=== PATIENT | female | born 1965 | race Caucasian/White ===

== ENCOUNTER 2019-09-25 18:05 | Emergency (ER) | payer BC, SELFPAY ==
--- NOTE | ~2019-09-25 | XR_ITS ---
EXAMINATION: XR lumbar spine 2-3V EXAM DATE: 09/25/2019 19:07 INDICATION: No known recent injury provided at this time. Pain of the mid to low back. TECHNIQUE: Lumber spine frontal, lateral, lateral L5-S1 projections for interpretation. There is no prior study for comparison. FINDINGS: There are no acute fractures identified. The vertebral bodies are aligned in the AP dimens ion. Vertebral body and disc heights are well-maintained. Minimal disc disease at L4-5 and L5-S1 and L1-2. Minimal facet arthropathy. No spondylolysis. Sacrum, sacroiliac joints, sacral arcuate lines ar e intact. Paraspinal soft tissue is unremarkable. IMPRESSION: Minimal lumbar spondylosis. No acute findings. Reviewed, dictated and finalized at location A.
--- NOTE | ~2019-09-25 | XR_ITS ---
EXAMINATION: XR thoracic spine 3V EXAM DATE: 09/25/2019 19:07 INDICATION: Mid to low back pain. No known recent injury provided at this time. TECHNIQUE: Frontal and lateral projections of the thoracic spine as well as lateral swimmers projecti on of the upper thoracic spine for interpretation. Comparison is made to prior examination from 2011. FINDINGS: There is minimal mid and lower thoracic disc disease. The vertebral bodies are aligned i n the AP dimension. Vertebral body and disc heights are well-maintained. There are no bony erosions i dentified. Paraspinal soft tissue is unremarkable. IMPRESSION: Minimal thoracic spondylosis. Reviewed, dictated and finalized at location A.
[2019-09-25 18:10] VITALS: BP 145/77; PULSE 76; RESP 14; TEMP 36.6; O2SAT 96
--- NOTE | 2019-09-25 18:14 | ED.BACK ---
HPI - Back Pain/Injury General Chief Complaint: Back Pain/Injury Stated Complaint: shoulder pain, back pain, hand/arm numbness Time Seen by Provider: 09/25/19 18:20 Source: patient Mode of arrival: ambulatory Limitations: no limitations History of Present Illness HPI Narrative: 53-year-old woman comes in today complaining of midline, mid back pain that started a few days ago. Patient states she has had no falls or injuries. She has a history of low back pain which is chronic in nature. 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 The pain is dissimilar and in a different location from past kidney infections and low back pain. She states she also has left shoulder pain it is worse with lifting it and she also has intermittent numbness of her whole left hand. She denies any symptoms in her legs, urinary symptoms, abdominal pain, fever, and weakness. She denies trauma. MD elicited complaint: back pain Pertinent past history: prior back pain and other ( UTIs) Onset (ago): week(s) (2) Timing: constant Severity: moderate Similar Symptoms Previously: Yes ( but not at this particular spot.) Quality: sharp Location: thoracic spine Exacerbating factors: movement and lifting Relieving factors: none Context: while lifting and bending Associated symptoms: numbness and arthralgias Treatments prior to arrival: acetaminophen Related Data Home Medications Medication Instructions Recorded Confirmed albuterol sulfate [ProAir 2 inh INHALATION PRN PRN 09/25/19 09/25/19 RespiClick] escitalopram oxalate 20 mg PO DAILY 09/25/19 09/25/19 montelukast 10 mg PO DAILY 09/25/19 09/25/19 Allergies Allergy/AdvReac Type Severity Reaction Status Date / Time Penicillins Allergy Unknown UNKNOWN Verified 03/03/18 11:19 BUT PT STATES VERY SERIOUS REACTION Review of Systems Constitutional: Constitutional: Denies chills, Denies fever(s) and Denies weakness Eyes: Eyes: Denies change in vision and Denies photophobia ENT: Denies dysphagia, Denies nasal congestion and Denies sore throat Cardiovascular: Cardiovascular: Denies chest pain and Denies radiating jaw, neck or arm pain Respiratory: Respiratory: Denies cough, Denies dyspnea and Denies wheezing Gastrointestinal: Gastrointestinal: Denies abdominal pain, Denies nausea and Denies vomiting Genitourinary: Genitourinary: Denies hematuria, Denies nocturia and Denies dysuria Musculoskeletal: Musculoskeletal: Reports as per HPI, Reports back pain and Reports arthralgias Integumentary/Breasts: Skin/Breast: Denies pruritus, Denies erythema and Denies rash Neurologic: Reports as per HPI, Denies vertigo, Denies dizziness, Denies syncope, Denies focal weakness and Reports numbness ( Left hand) Psychiatric: Psychiatric: Denies anxiety and Denies depression Hematologic/Lymphatic: Hematologic/Lymphatic: Denies easy bleeding and Denies easy bruising Allergic/Immunologic: Allergic/Immunologic: Denies lip swelling and Denies wheezing PMFSH Past Medical History Medical History Chronic back pain COPD (chronic obstructive pulmonary disease) GERD (gastroesophageal reflux disease) Surgical History Surgical History H/O: hysterectomy Hx of tonsillectomy Social History Social History Smoking status: Current every day smoker Alcohol intake: former Substance use: never Living arrangements: with family Exam Const: General: alert Nutritional Appearance: obese Orientation/consciousness: patient oriented x3 Other: [id number]-[id number]-[id number] acute distress. Eyes: Conjunctivae: conjunctivae normal Pupils: Equal, round and reactive pupils present EOM: EOMs intact bilaterally Resp: Effort & Inspection: normal respiratory effort and not labored Ausculta
[2019-09-25] MEDS: KETOROLAC (*BKC) 60 MG/2 ML VIAL IM (18:38)
[2019-09-25 18:48] LABS: Add Urine Microscopic? YES; Appearance Urine Clear (Clear); Bilirubin Urine Negative (Negative); Blood Urine Negative (Negative); Color Urine Yellow (Yellow); Glucose Urine UA Negative (Negative); Ketones Urine Negative (Negative); Leukocyte Esterase Ur Trace (Negative); Nitrate Urine Negative (Negative); Protein Urine Negative (Negative); Specific Grav Ur <= 1.005 (1.010-1.020); Urobilinogen Urine 0.2 mg/dL (0.2-1.0); pH Urine 5.5 (5.0-8.0)
[2019-09-25 18:52] LABS: Bacteria Urine 2+ /hpf; RBC Urine 0-2 /hpf (0-2); Squamous Epithelial Cell Urine Few /hpf (Few)
[2019-09-25 19:35] VITALS: RESP 15; O2SAT 97
== END 2019-09-25 19:39 | disposition home or self-care (01) ==
PROVIDERS: Emergency Provider Emergency Medicine; PCP Internal Medicine
DX: S29.012A Strain of muscle and tendon of back wall of thorax, initial encounter (principal); S46.912A Strain of unspecified muscle, fascia and tendon at shoulder and upper arm level, left arm, initial encounter; R20.0 Anesthesia of skin; N39.0 Urinary tract infection, site not specified
CPT/HCPCS: 72072; 72100; 81001; 96372; 99283; 99284; A9270; J1885

== ENCOUNTER 2019-10-09 14:49 | Outpatient (CLI) | payer BC, SELFPAY ==
--- NOTE | ~2019-10-09 | XR_ITS ---
XR shoulder LT min 2V 10/09/2019 15:13 Indication: Left shoulder pain Procedure: 4 views left shoulder Comparison: No prior studies for comparison. Findings: No acute fracture or traumatic malalignment. No focal soft tissue abnormality. Visualized l raj parenchyma is normal. Impression: 1: No significant bone or joint abnormality. Reviewed, dictated and finalized at location A. Impression: 1: No significant bone or joint abnormality.
--- NOTE | ~2019-10-09 | XR_ITS ---
EXAMINATION: XR_CERV2-3V_CR EXAM DATE: 10/09/2019 15:12 INDICATION: Left shoulder pain, lifting injury on 09/20, limited range of motion. TECHNIQUE: Cervical spine frontal, lateral, lateral swimmers, and open-mouth odontoid projections. There is no prior study for comparison. FINDINGS: There is no evidence of acute cervical fracture. The odontoid process is intact. Pre-dens space is normal. Prevertebral soft tissue is normal. There are no soft tissue abnormalities identi fied. Mild to moderate disc disease at C4-5 and C6-7. There is mild cervical facet and uncovertebral joint arthropathy. Vertebral body and disc heights are well-maintained. IMPRESSION: 1. Mild to moderate cervical spondylosis. 2. No acute findings. Reviewed, dictated and finalized at location A.
== END 2019-10-09 14:50 | disposition home or self-care (01) ==
LOC: CHSIMG 14:51
PROVIDERS: PCP Internal Medicine; Visit Provider Internal Medicine
DX: M25.512 Pain in left shoulder (principal)
CPT/HCPCS: 72040; 73030

== ENCOUNTER 2019-10-23 14:57 | Outpatient (RCR) | payer BC, SELFPAY ==
--- NOTE | 2019-10-30 21:49 | PTOPEVAL ---
Thank you for referring Monalisa Walter to [facility]. Please review, sign, date and return this plan of care MARINA. I agree with and certify that the following plan of care is medically necessary. Referring Physician Date Admitting Provider: Attending Provider: Fco Smith MD Referring Provider: *PT Outpatient Evaluation Start: 10/23/19 15:12 Freq: Status: Active Protocol: Document 10/23/19 15:10 [facility] (Rec: 10/23/19 15:30 [facility] [id number]) Therapy Assessment Status Assessment Status Assessment Status Evaluation Outpatient Past Medical History Respiratory History Hx Chronic Obstructive Pulmonary Disease Yes (COPD) Gastrointestinal History Hx Gastroesophageal Reflux Disease Yes Musculoskeletal History Hx Back Pain Yes Hx Orthopedic Surgery Yes: L ARM HEENT History Hx Tonsillectomy Yes Reproductive History Hx Hysterectomy Yes Hx Tubal Ligation Yes Evaluation Information Problem Diagnosis L shoulder pain, low back pain Onset 09/25/19 Additional Evaluation Detail oswestry = 48% quick dash = 84% Subjective Information patient reports she injured Query Text:As Reported By Patient/ the L shoulder and low back. Family she reports she was at work at [employer]. 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 she reports she felt a sharp pain in the back and shoulder/arm numbness . she reports she reported the pain the next day. she reports she has most of her pain with standing. she reports the pain is higher up in the spine near the neck. she reports she has numbness and tingling in the L arm. Prior Level of Function Comments Additional Prior Level of Function patient reports she prior to Comments injury at work, she has had no issues with the L shoulder/UE or back/neck. she reports she is off work currently. she reports to return to work she has to lift 50lbs. she reports she has numbness/swelling in the entire L hand. she report
--- NOTE | 2019-11-07 14:27 | PCPTNOTE ---
11/07/2019- pt cancelled todays appointment, stating she was not feeling well today. -.
--- NOTE | 2019-12-25 16:19 | PCPTNOTE ---
12/25/19 - patient has not been to therapy in several months. as of this date, patient will be DC'd from skilled PT services, and all progress towards goals will be taken from patients most recent evaluation/note. NISREEN
== END 2019-11-13 09:36 | disposition home or self-care (01) ==
LOC: CHSPT 14:57
PROVIDERS: PCP Internal Medicine; Visit Provider Internal Medicine
DX: M25.512 Pain in left shoulder (principal); M54.5 Low back pain
CPT/HCPCS: 97014; 97035; 97110; 97161; 97542; G0283

== ENCOUNTER 2019-11-28 13:38 | Outpatient (CLI) | payer OTHER, BC, SELFPAY ==
--- NOTE | ~2019-11-28 | MR_ITS ---
EXAMINATION: MR shoulder LT wo con DATE: 11/28/2019 14:42 INDICATION: Injury of left shoulder and upper arm. TECHNIQUE: Magnetic resonance imaging (MRI) of the left shoulder was performed without intravenous co ntrast. Sequences included axial PD-weighted FS FSE, coronal oblique PD-weighted FS FSE and T2-weight ed FS FSE, and sagittal oblique T2-weighted FS FSE and T1-weighted FSE. COMPARISON: Left shoulder radiographs 10/09/2019 FINDINGS: Coracoacromial arch: The acromion undersurface is curved in morphology (type II). The acromioclavicular joint is normal. T here is mild subacromial/subdeltoid bursitis. Rotator cuff: There is mild supraspinatus and infraspinatus tendinopathy. No tear. Teres minor tendon is normal. Todd bscapularis tendon is normal. There is no asymmetric fatty atrophy of the rotator cuff muscle bellies . Biceps tendon and glenoid labrum: Biceps tendon is in bicipital groove. Intra-articular biceps tendon is normal. There is a tear of pos terior labrum from 9:00-10:00. Fluid: There is no glenohumeral joint effusion. Bones/cartilage: Humeral head cartilage is normal. Glenoid cartilage is normal. IMPRESSION: 1. Mild rotator cuff tendinopathy. No tear. 2. Tear of posterior labrum from 9:00-10:00. 3. Mild subacromial/subdeltoid bursitis. Reviewed, dictated and finalized at location A.
== END 2019-11-28 13:39 | disposition home or self-care (01) ==
PROVIDERS: PCP Internal Medicine; Visit Provider Orthopaedic Surgery
DX: M75.102 Unspecified rotator cuff tear or rupture of left shoulder, not specified as traumatic (principal)
CPT/HCPCS: 73221

== ENCOUNTER 2019-12-04 19:51 | Emergency (ER) | payer BC, SELFPAY ==
--- NOTE | 2019-12-04 19:55 | ED.GENADULT ---
HPI - General Adult General Chief complaint: Extremity Problem,Nontraumatic Stated complaint: pain after shot in arm Time Seen by Provider: 12/04/19 19:55 Source: patient and RN notes reviewed Mode of arrival: ambulatory Limitations: no limitations History of Present Illness HPI narrative: Patient had a steroid injection into her left glenohumeral joint at 11:00 a.m. this morning. She said it felt good for about 20 minutes but then the pain became worse. She called the orthopedic office and they told her to take ibuprofen or Tylenol and use heat on her shoulder. She says that the pain is excruciating and she is crying because it hurt so much. She called back in the suggested she go to Urgent Care. She comes here for evaluation. She has not had any further injury. She has not have any fever or chills. It hurts when she moves or lays on it. At also has constant pain without movement. complaint: Left shouler pain Onset (ago): hour(s) (10) Location: left and upper extremity (Shoulder) Radiation: non-radiation Severity: severe Quality: burning, aching and constant Pain Consistency: constant Relieving factors: none Exacerbating factors: movement Associated symptoms: denies other symptoms Treatments prior to arrival: NSAID Related Data Home Medications Medication Instructions Recorded Confirmed albuterol sulfate [ProAir 2 inh INHALATION PRN PRN 09/25/19 12/04/19 RespiClick] escitalopram oxalate 20 mg PO DAILY 09/25/19 12/04/19 montelukast 10 mg PO DAILY 09/25/19 12/04/19 Allergies Allergy/AdvReac Type Severity Reaction Status Date / Time Penicillins Allergy Unknown UNKNOWN Verified 12/04/19 09:56 BUT PT STATES VERY SERIOUS REACTION Review of Systems Review of Systems: All systems reviewed & are unremarkable except as noted in HPI and below PMFSH Past Medical History Medical History Chronic back pain COPD (chronic obstructive pulmonary disease) COPD (chronic obstructive pulmonary disease) with emphysema GERD (gastroesophageal reflux disease) History of blood clots with contraceptive medication IBS (irritable bowel syndrome) Vision abnormalities Weight loss Surgical History Surgical History H/O: hysterectomy History of surgery on arm ORIF radius and ulna, Dr. Pretty, [place] Hx of tonsillectomy Family History Family History Other Arthritis Heart disease Social History Social History Smoking packs per day: 1 Smoking cigarettes per day: 20.0 Years smoked: 33 Smoking pack-years: 33.00 Smoking status: Current every day smoker Alcohol intake: current Substance use: never Exam Const: General: healthy appearing and no acute distress Nutritional Appearance: well nourished Orientation/consciousness: patient oriented x3 Other: Appears in pain due to left shoulder HENMT: Head: normal to inspection Ears: external ears normal Face and sinus: normal facial exam Mouth: Yes moist mucous membranes Eyes: Conjunctivae: conjunctivae normal Pupils: Equal, round and reactive pupils present EOM: EOMs intact bilaterally Neck: Neck: normal visual inspection Resp: Effort & Inspection: normal respiratory effort Auscultation: clear to auscultation bilaterally Cardio: Rate: regular rate Rhythm: regular rhythm GI: Auscultation: normal bowel sounds Back/Spine/Pelvis: Cervical Spine: cervical ROM normal Thoracic/Lumbar Spine: thoraco-lumbar ROM normal Skin: General skin exam: normal color Rashes: no rashes Wounds: no wounds Neuro: General: patient oriented x3, moves all extremities and no focal motor deficits Gait exam (Neuro): Normal gait present Extrem: Left upper extremity: shoulder/upper arm tenderness (Severe) of the A-C joint and o
[2019-12-04 20:00] VITALS: BP 147/102; PULSE 90; RESP 16; TEMP 36.9; O2SAT 99
== END 2019-12-04 20:22 | disposition home or self-care (01) ==
PROVIDERS: Emergency Provider Emergency Medicine; PCP Internal Medicine
DX: M25.512 Pain in left shoulder (principal)
CPT/HCPCS: 99283; A9270

== ENCOUNTER 2020-01-01 14:21 | Emergency (ER) | payer BC, SELFPAY ==
[2020-01-01 14:30] VITALS: BP 131/76; PULSE 88; RESP 19; TEMP 36.8; O2SAT 98
--- NOTE | 2020-01-01 14:33 | ED.GENADULT ---
HPI - General Adult General Chief complaint: Extremity Injury, Upper Stated complaint: shoulder pain History of Present Illness HPI narrative: Pt got a cortisone shot in shoulder 2 weeks ago, and pain has increased. pt doesnt know what happened,. She has called her dr office and they tell her to use ice pack and tylenol. Onset (ago): week(s) Location: left (shoulder) Severity: severe Quality: sharp Pain Consistency: constant Relieving factors: none Exacerbating factors: none Associated symptoms: denies other symptoms Related Data Home Medications Medication Instructions Recorded Confirmed albuterol sulfate [ProAir 2 inh INHALATION PRN PRN 09/25/19 01/01/20 RespiClick] escitalopram oxalate 20 mg PO DAILY 09/25/19 01/01/20 montelukast 10 mg PO DAILY 09/25/19 01/01/20 diclofenac sodium 75 mg PO BID 01/01/20 01/01/20 Allergies Allergy/AdvReac Type Severity Reaction Status Date / Time Penicillins Allergy Unknown UNKNOWN Verified 12/20/19 14:16 BUT PT STATES VERY SERIOUS REACTION Review of Systems Review of Systems: All systems reviewed & are unremarkable except as noted in HPI and below Constitutional: Constitutional: Reports no additional constitutional complaints Eyes: Eyes: Reports as per HPI ENT: Reports system reviewed and no additional complaints, except as documented Cardiovascular: Cardiovascular: Reports no additional cardiovascular complaints Gastrointestinal: Gastrointestinal: Reports no additional gastrointestinal complaints Musculoskeletal: Musculoskeletal: Reports as per HPI Neurologic: Reports system reviewed and no additional complaints, except as documented Psychiatric: Psychiatric: Reports no additional psychiatric complaints Endocrine: Endocrine: Reports no additional endocrine complaints Hematologic/Lymphatic: Hematologic/Lymphatic: Reports no additional hematologic/lymphatic complaints Allergic/Immunologic: Allergic/Immunologic: Reports no additional allergic/immunologic complaints [facility] Past Medical History Medical History Chronic back pain COPD (chronic obstructive pulmonary disease) COPD (chronic obstructive pulmonary disease) with emphysema GERD (gastroesophageal reflux disease) History of blood clots with contraceptive medication IBS (irritable bowel syndrome) Vision abnormalities Weight loss Surgical History Surgical History H/O: hysterectomy History of surgery on arm ORIF radius and ulna, Dr. Pretty, [place] Hx of tonsillectomy Family History Family History Other Arthritis Heart disease Social History Social History Smoking packs per day: 1 Smoking cigarettes per day: 20.0 Years smoked: 33 Smoking pack-years: 33.00 Smoking status: Current every day smoker Alcohol intake: current Substance use: never Exam Narrative: Exam Narrative: Left shoulder is drawn up, left trap muscle very tender and spasming. Pt sitting with shoulders drawn up and head held in right sided tilt. Pt very tender over trap muscle Const: General: no acute distress HENMT: Head: normal to inspection Eyes: Pupils: Equal, round and reactive pupils present Neck: Neck: normal visual inspection Chest: Chest palpation & inspection: normal inspection of the chest Cardio: Rate: regular rate Rhythm: regular rhythm GI: GI Palp: Yes Soft to palpation and No Tenderness to palpation present (GI) Skin: General skin exam: normal color Neuro: General: patient oriented x3 Extrem: General: normal to inspection Other: Left trap muscle very tender, pt has posture contributing to muscle soreness Psych: Appearance: grossly normal Mental Status: mental status grossly normal Thought content: Yes Normal tho
[2020-01-01 15:16] VITALS: RESP 16
== END 2020-01-01 15:19 | disposition home or self-care (01) ==
PROVIDERS: Emergency Provider Emergency Medicine; PCP Internal Medicine
DX: M25.512 Pain in left shoulder (principal); J44.9 Chronic obstructive pulmonary disease, unspecified; K21.9 Gastro-esophageal reflux disease without esophagitis; K58.9 Irritable bowel syndrome, unspecified; R63.4 Abnormal weight loss; F17.200 Nicotine dependence, unspecified, uncomplicated
CPT/HCPCS: 99281; 99283

== ENCOUNTER 2020-04-01 08:51 | Outpatient (RCR) | payer BC, SELFPAY ==
--- NOTE | 2020-04-01 09:53 | PTOPEVAL ---
Thank you for referring Monalisa Walter to [facility].? The patient is scheduled to be seen for therapy? ____x/week for ___ weeks. Please review, sign, date and return this plan of care MARINA. I agree with and certify that the following plan of care is medically necessary. Referring Physician Date Admitting Provider: Attending Provider: Fabrizio Schuster MD Referring Provider: *PT Outpatient Evaluation Start: 04/01/20 09:02 Freq: Status: Active Protocol: Document 04/01/20 09:05 NISREEN (Rec: 04/01/20 09:53 [facility] [id number]) Therapy Assessment Status Assessment Status Assessment Status Evaluation Outpatient Past Medical History Respiratory History Hx Chronic Obstructive Pulmonary Disease Yes (COPD) Gastrointestinal History Hx Gastroesophageal Reflux Disease Yes Musculoskeletal History Hx Back Pain Yes Hx Orthopedic Surgery Yes: L ARM HEENT History Hx Tonsillectomy Yes Reproductive History Hx Hysterectomy Yes Hx Tubal Ligation Yes Evaluation Information Problem Diagnosis L shoulder pain, slap tear Onset 09/25/19 Additional Evaluation Detail quick dash = 75% functionally declined Subjective Information patient was in therapy back in Query Text:As Reported By Patient/ Courtney of this year for L Family shoulder pain. however, since then, she has had an MRI that has shown a SLAP tear of the L shoulder. she reports she is not currently planning on having surgery, but is going to try rehabbing the shoulder first. she reports she injured the shoulder at work. she reports she was lifting a box up over her head and felt a sharp pain in her shoulder. she reports she has difficulty with lifting, pulling, cooking. she reports she is unable to lift a pot of pasta off the stove. she reports she has difficulty sleeping ( especially laying on her L side). she reports she does have improved movement in the L shoulder. Prior Level of Function Comments Additional Prior Level of Function patient reports she has been Comments dealing with this injury since
--- NOTE | 2020-04-21 12:30 | PCPTNOTE ---
04/21/20 - patient was treated by Carolyn Courtney DPT under supervision of Bishop Gonzalez DPT
--- NOTE | 2020-04-30 15:42 | PTOPEVAL ---
Thank you for referring Monalisa Walter to [facility].? The patient is scheduled to be seen for therapy? ____x/week for ___ weeks. Please review, sign, date and return this plan of care MARINA. I agree with and certify that the following plan of care is medically necessary. Referring Physician Date Admitting Provider: Attending Provider: Fabrizio Schuster MD Referring Provider: *PT Outpatient Evaluation Start: 04/01/20 09:02 Freq: Status: Active Protocol: Document 04/30/20 13:55 [facility] (Rec: 04/30/20 14:54 [facility] [id number]) Therapy Assessment Status Assessment Status Assessment Status Progress Outpatient Past Medical History Respiratory History Hx Chronic Obstructive Pulmonary Disease Yes (COPD) Gastrointestinal History Hx Gastroesophageal Reflux Disease Yes Musculoskeletal History Hx Back Pain Yes Hx Orthopedic Surgery Yes: L ARM HEENT History Hx Tonsillectomy Yes Reproductive History Hx Hysterectomy Yes Hx Tubal Ligation Yes Evaluation Information Problem Diagnosis L shoulder pain, SLAP tear Subjective Information Patient states that her worst Query Text:As Reported By Patient/ pain in the past week is about Family a 6/10, but feels that since the beginning of therapy she is 75% improved. She states she is able to blow dry her hair, open her car door, but still has difficulty with pushing, pulling, and lifting. Pain Assessment Pain Scale Pain Scale Used Numeric (1 - 10) Self Report Pain Assessment Left Shoulder(s) Reported Pain Level 1 Pain Score Pain Score 1: Self Report Interventions Used Interventions Used By Clinicians Activity or ADL's,Education, Electrical Stimulation, Exercise,Heat Upper Extremity Range of Motion General Upper Extremity Range of Motion Gross Upper Extremity Range of Motion Shoulder flexion AROM: 155 Comments Shoulder medial rotation AROM: 50 Shoulder lateral rotation: 65 functional reach IR: L4 SP functional reach ER: C7 SP Upper Extremity Muscle Strength Testing Scapular/Shoulder Left Shoulder Flexion Strength 4 Good Shoulder Extension Strength 4 Good Shoulder Abduction Strength 4 Good Shoulder Medial Rotation Strength 4 Good Shoulder Lateral Rotation Strength 4 Good Elbow/Forearm Left Elbow Flexion Strength 4+ Good + Elbow Extension Strength 4 Good Po
--- NOTE | 2020-08-12 13:51 | PCPTNOTE ---
08/12/20 - patient has not returned to skilled PT in over 3 months. as of this date, all progress towards goals will be taken from her most recent evaluation/note, and patient will be DC'd from skilled PT services. NISREEN
== END 2020-04-30 23:59 | disposition home or self-care (01) ==
LOC: CHSPT 08:51
PROVIDERS: Visit Provider Orthopaedic Surgery
DX: M75.102 Unspecified rotator cuff tear or rupture of left shoulder, not specified as traumatic (principal)
CPT/HCPCS: 97014; 97110; 97161; G0283

== ENCOUNTER 2020-11-25 12:17 | Outpatient (CLI) | payer BC, SELFPAY ==
--- NOTE | ~2020-11-25 | XR_ITS ---
EXAMINATION: XR chest 2V 11/25/2020 12:46 INDICATION: COPD. Dyspnea. PROCEDURE: 2 view chest COMPARISON: Comparison to multiple prior studies sequentially, with oldest reviewed study dated 08/06. FINDINGS: The lungs are clear. The cardiomediastinal silhouette is within normal limits. There are no pleural effusions. There is no pneumothorax suspected. IMPRESSION: 1: NO ACUTE CARDIOPULMONARY DISEASE. Reviewed, dictated and finalized at location A.
[2020-11-25 12:34] LABS: Appearance Urine Clear (Clear); Basophils Absolute Auto 0.03 K/mm3 (0.00-0.10); Basophils Percent Auto 0.3 % (0.0-1.0); Bilirubin Urine Negative (Negative); Color Urine Light Yellow (Yellow); Eosinophils Percent Auto 1.1 % (1.0-6.0); Glucose Urine UA Negative (Negative); Hematocrit 44.2 % (35.0-49.0); Hemoglobin 14.3 g/dL (12.0-15.0); Immature Granulocyte Absolute 0.02 K/mm3 (0.00-0.00); Immature Granulocyte Percent A 0.2 % (0.0-0.0); Ketones Urine Negative (Negative); Leukocyte Esterase Ur 2+ (Negative); Lymphocytes Absolute Auto 3.82 K/mm3 (1.10-4.50); Lymphocytes Percent Auto 43.5 % (18.0-42.0); Mean Corpuscular HGB Conc 32.4 g/dL (32.0-36.0); Mean Corpuscular Hemoglobin 27.9 pg (27.0-31.0); Mean Corpuscular Volume 86.2 fL (78.0-102.0); Mean Platelet Volume 11.9 fl (9.2-11.8); Monocytes Absolute Auto 0.42 K/mm3 (0.10-0.90); Monocytes Percent Auto 4.8 % (2.0-11.0); Neutrophils Absolute Auto 4.4 K/mm3 (1.7-7.2); Neutrophils Percent Auto 50.1 % (50.0-70.0); Nitrate Urine Negative (Negative); Platelet Count Result 288 K/mm3 (150-420); Protein Urine Negative (Negative); Red Blood Count 5.13 M/mm3 (4.20-5.40); Red Cell Distribution Width 14.1 % (11.6-14.4); Specific Grav Ur <= 1.005 (1.010-1.020); Urobilinogen Urine 0.2 mg/dL (0.2-1.0); White Blood Count 8.8 K/mm3 (4.8-10.8); pH Urine 6.5 (5.0-8.0)
--- NOTE | 2020-11-25 13:00 | ECG_ITS ---
Measurements Intervals [place] Rate: 62 P: 20 LA: 116 QRS: 73 QRSD: 87 T: 74 QT: 407 QTc: 414 Interpretive Statements SINUS RHYTHM WITH SHORT LA INTERVAL VENTRICULAR PREMATURE COMPLEX BORDERLINE T WAVE ABNORMALITY- ANTERIOR LEADS BASELINE ARTIFACT- I ,III, AVR, AVL, AVF BORDERLINE ECG Electronically Signed On 11-25-2020 13:14:40 CDT by Lul Swann D.O.
[2020-11-25 13:14] LABS: Add Urine Microscopic? YES; Bacteria Urine 2+ /hpf; Blood Urine Trace-lysed (Negative); Squamous Epithelial Cell Urine Few /hpf (Few); WBC Urine 16-20 /hpf (0-3)
[2020-11-25 13:35] LABS: Alanine Aminotransferase 30 U/L (14-59); Albumin Level 4.3 g/dL (3.4-5.0); Alkaline Phosphatase 122 U/L (46-116); Anion Gap 13 mmol/L (8-16); Aspartate Amino Transferase 23 U/L (15-37); Bilirubin,Total 0.2 mg/dL (0.00-1.00); Blood Urea Nitrogen 11 mg/dL (7-18); Calcium 9.2 mg/dL (8.5-10.1); Carbon Dioxide 27 mmol/L (21-32); Chloride 104 mmol/L (98-108); Cholesterol 304 mg/dL (0-200); Estimated Glomerular Filt Rate > 60; Glucose 83 mg/dL (70-99); HDL Direct 43 mg/dL (40-60); LDL Cholesterol Calculated 211 mg/dL (<130); Osmolality Calculated 296 mOsm/kg (285-295); Potassium 4.1 mmol/L (3.5-5.1); Sodium 144 mmol/L (136-145); Thyroid Stimulating Hormone 1.27 uIU/mL (0.36-3.74); Total Protein 7.5 g/dL (6.4-8.2); Triglycerides 249 mg/dL (0-150)
== END 2020-11-25 12:18 | disposition home or self-care (01) ==
LOC: CHSLAB 12:20
PROVIDERS: PCP Internal Medicine; Visit Provider Internal Medicine
DX: Z00.00 Encounter for general adult medical examination without abnormal findings (principal); J44.9 Chronic obstructive pulmonary disease, unspecified
CPT/HCPCS: 36415; 71046; 80053; 80061; 81001; 84443; 85025; 93005

== ENCOUNTER 2020-12-05 08:00 | Outpatient (CLI) | payer BC, SELFPAY ==
--- NOTE | ~2020-12-05 | NM_ITS ---
EXAMINATION: NM asia stress w perfusion DATE: 12/05/2020 10:55 INDICATION: Dyspnea on exertion TECHNIQUE: Rest images were obtained following intravenous administration of 10.2 mCi Tc99m tetrofosm in (Myoview). The patient was infused intravenously with Lexiscan (Regadenoson). Then, 33.3 mCi Tc99m tetrofosmin (Myoview) was administered intravenously, and stress images were obtained. Data was rc nstructed into short axis and horizontal and vertical long axis SPECT images. Gated SPECT images were also obtained. COMPARISON: None. FINDINGS: There is no definite reversible or fixed perfusion abnormality to suggest ischemia or infar ction. There is normal left ventricular chamber size, wall motion and ejection fraction. Left ventr icular ejection fraction measures 69%. IMPRESSION: 1. Normal myocardial perfusion at rest and during stress. 2. Left ventricular ejection fraction measuring 69%. Reviewed, dictated and finalized at location A.
--- NOTE | 2020-12-05 08:52 | EST_ITS ---
Patient Info Name: Monalisa Walter Age: 54 years : 1965 Gender: Female Ht: 64 in Wt: 168 lbs BSA: 1.88 m2 HR: 60 bpm BP: 103 / 71 mmHg Heart Rhythm: Sinus Rhythm Exam Date: 12/05/2020 9:09 AM Exam Location: [facility] Stress Patient Status: Outpatient Admit Date: 12/05/2020 Staff Ordering Physician: Lul Swann DO Attending Provider: Lul Swann DO Exercise Technologist: Annalisa Barnes CT Exercise Physician: Lul Swann DO Exam Type: CA stress asia w NM Study Info A regadenoson stress test was performed. Summary 1. 1. Negative lexiscan stress test for ischemic ST changes by ECG criteria. 2. 2. Stable hemodynamics throughout the test. 3. 3. Nuclear scan to follow and will be reported separately. Please correlate with it. 4. 4. Patient informed of the above results. Protocol: Lexiscan Stress ECG Details Stage: REST Duration (min): 1 min : 3 sec HR (bpm): 66 SBP (mmHg): 103 DBP (mmHg): 71 Stage: REST Duration (min): 6 min : 9 sec HR (bpm): 63 SBP (mmHg): 103 DBP (mmHg): 71 Stage: STAGE 1 Duration (min): 1 min : 0 sec HR (bpm): 88 SBP (mmHg): 130 DBP (mmHg): 75 Stage: RECOVERY Duration (min): 1 min : 0 sec HR (bpm): 105 SBP (mmHg): 130 DBP (mmHg): 75 Stage: RECOVERY Duration (min): 2 min : 0 sec HR (bpm): 116 SBP (mmHg): 130 DBP (mmHg): 75 Stage: RECOVERY Duration (min): 2 min : 52 sec HR (bpm): 108 SBP (mmHg): 118 DBP (mmHg): 78 Rest HR: 63 bpm Peak HR: 117 bpm Rest Sys BP: 103 mmHg Peak Sys BP: 130 mmHg Max Pred HR: 168 bpm % Max Pred HR: 70 % Target HR: 143 bpm Max RPP: 15,210 bpm*mmHg Termination Reason: Completed protocol Cardiac Symptoms: Headache, chest discomfort Total Time: 1 min : 0 sec Rest Mckeon BP: 71 mmHg Peak Mckeon BP: 75 mmHg Total Dose: 0.4 mg Resting ECG Sinus rhythm. Stress ECG No ST changes. Arrhythmias None. Report Signatures
== END 2020-12-05 08:01 | disposition home or self-care (01) ==
LOC: ANHCARD 08:04
PROVIDERS: PCP Internal Medicine; Visit Provider Internal Medicine Cardiovascular Disease
DX: R06.00 Dyspnea, unspecified (principal)
CPT/HCPCS: 78452; 93017; A9502; J2785

== ENCOUNTER → 2020-12-06 00:59 | Outpatient (CLI) | payer BC, SELFPAY ==
[2020-12-06 21:22] LABS: SARS-CoV-2 RNA PCR Negative
== END ==
PROVIDERS: PCP Internal Medicine; Visit Provider Orthopaedic Surgery
DX: Z01.812 Encounter for preprocedural laboratory examination (principal); Z20.822 Contact with and (suspected) exposure to COVID-19
CPT/HCPCS: C9803; U0003; U0005

== ENCOUNTER 2020-12-09 00:42 | Day surgery (SDC) | payer BC, SELFPAY ==
[2020-12-04 11:06] VITALS: BMI 29.1
[2020-12-09] VITALS (9 sets, daily range): BP systolic 107–153; BP diastolic 53–82; PULSE 55–81; RESP 12–20; TEMP 36.3–36.5; O2SAT 95–100
--- NOTE | 2020-12-09 07:23 | WPDHPUPDATE1 ---
History and Physical Update Update Date/Time: 12/09/20 07:23 History and Physical has been reviewed, including an updated exam of the patient. There are NO changes in the patient's condition. Risks, benefits, and alternatives have been discussed and questions answered. Patient agrees to proceed with procedure.
[2020-12-09] MEDS: CELECOXIB 200 MG CAPSULE PO (10:46)
[2020-12-09] MEDS: ACETAMINOPHEN 500 MG TABLET 1000 MG PO (10:46)
[2020-12-09] MEDS: LACTATED RINGERS 1,000 ML 30 ML IV CONT ×2 (11:10→13:57)
--- NOTE | 2020-12-09 11:41 | WPDANESEPPF ---
Anes - Initial Pre Proc Eval Procedure: Operation Date: 12/09/20 12:00 Proposed Procedures p Left Shoulder Arthroscopy, with Superior Labrum Anterior Posterior Tear Repair - Fabrizio Schuster MD Date/Time: 12/09/20 11:41 Surgeon: Fabrizio Schuster MD Pre Op Diagnosis: Left shoulder slap tear Patient Data Age: 55 Gender: F Height: 1.63 m Weight: 76 kg Last Vital Signs Temp 36.5 C 12/09/20 09:53 Pulse 70 12/09/20 09:53 Resp 20 12/09/20 09:53 BP 119/69 12/09/20 09:53 Pulse Ox 100 12/09/20 09:53 Allergies Allergy/AdvReac Type Severity Reaction Status Date / Time Penicillins Allergy Severe UNKNOWN Verified 12/09/20 10:41 BUT PT STATES VERY SERIOUS REACTION Home Medications Medication Instructions Recorded Confirmed Type albuterol sulfate [ProAir 2 inh INHALATION PRN PRN 09/25/19 12/09/20 History RespiClick] escitalopram oxalate 20 mg PO DAILY 09/25/19 12/09/20 History Fiber OTC 1 tab-cap BYMOUTH QAM 12/01/20 12/09/20 History cranberry fruit concentrate 250 mg 250 mg PO DAILY 12/01/20 12/09/20 History chewable tablet diphenhydramine 25 1 tablet PO QHS PRN 12/01/20 12/09/20 History mg-acetaminophen 500 mg tablet magnesium oxide 250 mg PO DAILY 12/01/20 12/09/20 History multivitamin 1 tablet PO DAILY 12/01/20 12/09/20 History omeprazole 20 mg capsule,delayed 20 mg PO DAILY 12/01/20 12/09/20 History release pyridoxine (vitamin B6) 250 mg 250 mg PO DAILY 12/01/20 12/09/20 History tablet rosuvastatin 20 mg tablet 20 mg PO DAILY #30 tablet 12/01/20 12/09/20 Rx Patient hx anesthesia problems: none Family hx anesthesia problems: none PMFSH Past Medical History Medical History Abnormal EKG Chronic back pain COPD (chronic obstructive pulmonary disease) COPD (chronic obstructive pulmonary disease) with emphysema GERD (gastroesophageal reflux disease) History of blood clots with contraceptive medication IBS (irritable bowel syndrome) Vision abnormalities Weight loss Surgical History Surgical History H/O: hysterectomy History of surgery on arm ORIF radius and ulna, Dr. Pretty, [place] Hx of tonsillectomy Family History Family History Other Arthritis Heart disease Social History Social History Smoking packs per day: 1 Smoking cigarettes per day: 20.0 Years smoked: 35 Smoking pack-years: 35.00 Tobacco type: cigarettes Alcohol intake: former Alcohol use details: QUIT 1 1/2 YRS AGO Substance use: never Living arrangements: with family Gender identity (if verbalized by the patient): Female Anes - Eval Final PreProcedure Day of Procedure 12/09/20 11:41 Patient weight: overweight Heart: regular rate and rhythm Lungs: decreased breath sounds Airway: Mallampati scale class II Neurological: alert and oriented Last oral intake: >/= 8 hours ASA classification: III Emergent: no Anesthetic plan: proceed Anesthesia type and monitoring: general ETT and standard monitoring Informed Consent: The patient's anesthetic plan and its attendant risks and benefits were discussed with the patient/family/POA. Questions were solicited and answers provided to the satisfaction of the patient/family/POA.
--- NOTE | 2020-12-09 12:10 | WPDANESPNB ---
Anes - Peripheral Nerve Block Date/Time: 12/09/20 12:10 I have discussed with the patient/family/POA the placement of a peripheral nerve block for post-operative pain management, including associated risks, benefits, complications, and side effects. Alternative methods of post-operative analgesia were detailed. Questions were solicited and answers provided to the satisfaction of the patient/family/POA. Time-Out: A pre-procedural Time-Out was completed immediately before starting the procedure and confirmed: Patient Identification, Site, Procedure, Patient Position and the Availability of Requisite Equipment. Clinical Indications: Acute post-operative pain management requested by the operative surgeon. Nerve Block Insertion Note Anes-nerve block: interscalene left Patient position: other (sitting) Skin prep: chlorhexidine Needle: 22 gauge, stimulating, insulated echogenic needle. Needle length: 50 mm Technique: nerve stimulation lost at (mA) (0.21) and ultrasound Injectate: bupivacaine 0.5% with epi 5 mcg/ml (30ml) Observations: tolerated well Complications: none Procedure start time:: 1155 Procedure end time:: 1202
[2020-12-09] MEDS: ceFAZolin 2 GM/D5W 50 ML 2 GM/50 ML BAG IVPB (12:11)
[2020-12-09] MEDS: methylPREDNISolone ACETATE 80 MG/ML VIAL 160 MG IM (13:22)
--- NOTE | 2020-12-09 13:51 | W.PM.PROC2 ---
Procedure Note - Detailed Date of Procedure 12/09/20 Pre-op Diagnosis Left shoulder slap tear Post-op Diagnosis same Procedure Performed LEFT SHOULDER SCOPE WITH DEBRIDEMENT OF SLAP TEAR, SYNOVECTOMY, AND CHONDROPLASTY Surgeon Fabrizio Schuster MD Anesthesia general Description of Procedure THE PATIENT WAS TAKEN TO THE OR, PLACED UNDER GENERAL ANESTHESIA AND THEN PLACED IN THE BEACH CHAIR POSITION. THE LEFT UPPER EXTREMITY WAS PREPPED AND DRAPED IN THE STERILE FASHION. TROCARS WERE PLACED IN THE USUAL FASHION. THE CAMERA WAS INTRODUCED. THERE WAS GRADE 2 CHONDROMALACIA TO THE GLENOID. THERE WAS A SLAP TEAR FROM THE 8 TO 11 O'CLOCK POSITION POSTERIORLY. THERE WAS NO FULL THICKNESS TEAR OR DETACHMENT. THERE WAS A LOT OF TISSUE FRAYING. THERE WAS A LOT OF SYNOVITIS AND ADHESIONS SEEN. AN ANTERIOR TROCAR WAS INTRODUCED FOLLOWED BY A SHAVER. THE SLAP TEAR WAS DEBRIDED TO A SMOOTH BASE. THE BICEPS ANCHOR AT THE 12 O'CLOCK POSITION AND THE ANTERIOR LABRUM WAS INTACT. THERE APPEARED TO BE SOME CHRONIC DEGENERATION AND THINNING TO THE ANTERIOR LABRUM BUT NO COLLIN TEAR. SYNOVECTOMY AND ADHESIOLYSIS WAS PREFORMED.THE ROTATOR CUFF INSERTION WAS INTACT WITH NO OBVIOUS TEAR. THERE WAS SYNOVITIS IN THE ANTERIOR SUPERIOR REGION NEAR THE BICEPS ANCHOR. DEBRIDEMENT OF THE ANTERIOR SUPERIOR EDGE OF THE GLENOID RIM WAS PREFORMED. SYNOVECTOMY WAS PREFORMED IN AREAS OF SYNOVITIS. THE INSTRUMENTS WERE REMOVED. THE WOUNDS WERE APPROXIMATED WITH 3-0 NYLON. STERILE DRESSING WAS APPLIED. THE PATIENT WAS EXTUBATED AND SENT TO THE RECOVERY ROOM. Estimated Blood Loss 20 Complications No immediate complications Condition stable Disposition PACU
== END 2020-12-09 15:39 | disposition home or self-care (01) ==
PROVIDERS: PCP Internal Medicine; Visit Provider Orthopaedic Surgery
PROC: (CPT 29805; principal; 2020-12-09 12:00)
DX: S43.431A Superior glenoid labrum lesion of right shoulder, initial encounter (principal); X50.0XXA Overexertion from strenuous movement or load, initial encounter; G89.18 Other acute postprocedural pain; J44.9 Chronic obstructive pulmonary disease, unspecified; K21.9 Gastro-esophageal reflux disease without esophagitis; K58.9 Irritable bowel syndrome, unspecified; Z87.891 Personal history of nicotine dependence; R94.31 Abnormal electrocardiogram [ECG] [EKG]; Y99.0 Civilian activity done for income or pay; Z79.51 Long term (current) use of inhaled steroids; M65.812 Other synovitis and tenosynovitis, left shoulder
CPT/HCPCS: 29820; 64415; A4565; A9270; J0330; J0690; J1040; J1100; J2250; J2405; J2704; J3010; J7120

== ENCOUNTER 2021-01-07 08:53 | Outpatient (RCR) | payer BC, SELFPAY ==
--- NOTE | 2021-01-07 10:05 | PTOPEVAL ---
Thank you for referring Monalisa Walter to [facility].? The patient is scheduled to be seen for therapy? ____x/week for ___ weeks. Please review, sign, date and return this plan of care MARINA. I agree with and certify that the following plan of care is medically necessary. Referring Physician Date Admitting Provider: Attending Provider: Fabrizio Schuster MD Referring Provider: *PT Outpatient Evaluation Start: 01/07/21 08:48 Freq: Status: Active Protocol: Document 01/07/21 08:48 ACR (Rec: 01/07/21 09:58 ACR [id number]) Therapy Assessment Status Assessment Status Assessment Status Evaluation Outpatient Past Medical History Neurological History Hx Neurological Disorders No Significant History Cardiovascular History Hx Hypertension Yes Respiratory History Hx Chronic Obstructive Pulmonary Disease Yes (COPD) Gastrointestinal History Hx Gastroesophageal Reflux Disease Yes Genitourinary History Hx Urinary Tract Infection Yes Musculoskeletal History Hx Back Pain Yes Hx Orthopedic Surgery Yes: L ARM Hematological History Hx Hematological Disorders No Significant History Endocrine History Hx Endocrine Disorders No Significant History HEENT History Hx Tonsillectomy Yes Integumentary History Hx Skin Disorders No Significant History Reproductive History Hx Hysterectomy Yes Hx Tubal Ligation Yes Psychosocial History Hx Psychiatric Disorders No Significant History Pain History Has Past Pain Affected Your Daily Life Yes Anesthesia History Hx Anesthesia Reactions No Significant History Evaluation Information Problem Diagnosis L shoulder scope and SLAP tear repair Onset 12/09/20 Subjective Information Patient states that she Query Text:As Reported By Patient/ underwent a scope to clear out Family scar tissue and repair a SLAP tear. The patient states she was lifting boxes at work that caused the SLAP tear. Patient states she has been doing exercises such as pendulums and walking up the wall. Patient states she is not to lift anything at all. Patient states that everything is difficult for her and some are easier than others. She is unable to reach overhead for a period of time. She still has shooting pain occasionall
--- NOTE | 2021-01-29 11:38 | PTOPEVAL ---
Thank you for referring Monalisa Walter to [facility].? The patient is scheduled to be seen for therapy? ____x/week for ___ weeks. Please review, sign, date and return this plan of care MARINA. I agree with and certify that the following plan of care is medically necessary. Referring Physician Date Admitting Provider: Attending Provider: Fabrizio Schuster MD Referring Provider: *PT Outpatient Evaluation Start: 01/07/21 08:48 Freq: Status: Active Protocol: Document 01/29/21 10:30 ACR (Rec: 01/29/21 11:33 ACR [id number]) Therapy Assessment Status Assessment Status Assessment Status Discharge Outpatient Past Medical History Neurological History Hx Neurological Disorders No Significant History Cardiovascular History Hx Hypertension Yes Respiratory History Hx Chronic Obstructive Pulmonary Disease Yes (COPD) Gastrointestinal History Hx Gastroesophageal Reflux Disease Yes Genitourinary History Hx Urinary Tract Infection Yes Musculoskeletal History Hx Back Pain Yes Hx Orthopedic Surgery Yes: L ARM Hematological History Hx Hematological Disorders No Significant History Endocrine History Hx Endocrine Disorders No Significant History HEENT History Hx Tonsillectomy Yes Integumentary History Hx Skin Disorders No Significant History Reproductive History Hx Tubal Ligation Yes Psychosocial History Hx Psychiatric Disorders No Significant History Pain History Has Past Pain Affected Your Daily Life Yes Anesthesia History Hx Anesthesia Reactions No Significant History Evaluation Information Problem Diagnosis L shoulder arthroscopy and SLAP tear repair Onset 12/09/20 Subjective Information Patient reports since Query Text:As Reported By Patient/ beginning therapy she is able Family to perform all of her daily activities with better ease. She is able to wash dishes, walk her dog, and reaching overhead. She states she still has difficulty clasping her bra, because she cannot reach that far up her back. She states that she has not had the shooting pain in awhile. Pain Assessment Timing of Pain Assessment Timing of Pain Assessment Assessment Pain Scale Pain Scale Used Numeric (1 - 10) Self Report Pain Assessment Left Shoulder(s) Reported Pain Level 1 Greatest Pain Intensity 5 Pain Score Pain Score 1: Self Report
== END 2021-01-29 10:18 | disposition home or self-care (01) ==
LOC: CHSPT 08:53
PROVIDERS: PCP Internal Medicine; Visit Provider Orthopaedic Surgery
DX: Z98.890 Other specified postprocedural states (principal)
CPT/HCPCS: 97014; 97110; 97161; G0283

== ENCOUNTER 2021-08-05 08:38 | Outpatient (RCR) | payer BC, SELFPAY ==
--- NOTE | 2021-08-05 08:07 | PTOPEVAL ---
Thank you for referring Monalisa Walter to [facility].? The patient is scheduled to be seen for therapy? __2__x/week for 10 visits. Please review, sign, date and return this plan of care MARINA. I agree with and certify that the following plan of care is medically necessary. Referring Physician Date Admitting Provider: Attending Provider: Fabrizio Schuster MD Referring Provider: *PT Outpatient Evaluation Start: 08/05/21 06:54 Freq: Status: Active Protocol: Document 08/05/21 06:54 JASON (Rec: 08/05/21 08:03 JASON [id number]) Therapy Assessment Status Assessment Status Assessment Status Evaluation Outpatient Past Medical History Neurological History Hx Neurological Disorders No Significant History Cardiovascular History Hx Hypertension Yes Respiratory History Hx Chronic Obstructive Pulmonary Disease Yes (COPD) Gastrointestinal History Hx Gastroesophageal Reflux Disease Yes Genitourinary History Hx Urinary Tract Infection Yes Musculoskeletal History Hx Back Pain Yes Hx Orthopedic Surgery Yes: L ARM Hematological History Hx Hematological Disorders No Significant History Endocrine History Hx Endocrine Disorders No Significant History HEENT History Hx Tonsillectomy Yes Integumentary History Hx Skin Disorders No Significant History Reproductive History Hx Tubal Ligation Yes Psychosocial History Hx Psychiatric Disorders No Significant History Pain History Has Past Pain Affected Your Daily Life Yes Anesthesia History Hx Anesthesia Reactions No Significant History Evaluation Information Problem Diagnosis left shoulder pain, left shoulder scope with SLAP debridement Onset 12/09/20 Subjective Information Pt. underwent surgery on Query Text:As Reported By Patient/ December 09. She reports that Family she is slightly improved in regards to pain since surgery. She reports that she still gets swelling in left hand after performing work tasks. 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 She reports that pain will wake her if she rolls onto her right arm. She reports that her job required her to lift up to 52# and she was able to do so before s
--- NOTE | 2021-09-15 15:09 | PTOPEVAL ---
Thank you for referring Monalisa Walter to [facility][Note 3].? The patient is scheduled to be seen for therapy? ____x/week for ___ weeks. Please review, sign, date and return this plan of care MARINA. I agree with and certify that the following plan of care is medically necessary. Referring Physician Date Admitting Provider: Attending Provider: Fabrizio Schuster MD Referring Provider: *PT Outpatient Evaluation Start: 08/05/21 06:54 Freq: Status: Active Protocol: Document 09/11/21 11:00 [facility] (Rec: 09/11/21 12:13 [facility] [id number]) Therapy Assessment Status Assessment Status Assessment Status Re-evaluation Outpatient Past Medical History Neurological History Hx Neurological Disorders No Significant History Cardiovascular History Hx Hypertension Yes Respiratory History Hx Chronic Obstructive Pulmonary Disease Yes (COPD) Gastrointestinal History Hx Gastroesophageal Reflux Disease Yes Genitourinary History Hx Urinary Tract Infection Yes Musculoskeletal History Hx Back Pain Yes Hx Orthopedic Surgery Yes: L ARM Hematological History Hx Hematological Disorders No Significant History Endocrine History Hx Endocrine Disorders No Significant History HEENT History Hx Tonsillectomy Yes Integumentary History Hx Skin Disorders No Significant History Reproductive History Hx Tubal Ligation Yes Psychosocial History Hx Psychiatric Disorders No Significant History Pain History Has Past Pain Affected Your Daily Life Yes Anesthesia History Hx Anesthesia Reactions No Significant History Evaluation Information Problem Diagnosis L Shoulder Pain; L Shoulder scope with SLAP debridement Onset 12/09/20 Additional Evaluation Detail Quick DASH = 59% Functionally Declined Subjective Information Pt reports that her shoulder Query Text:As Reported By Patient/ has been feeling much better. Family She states that she has been able to do many more things around her house, but knows when she has used her arm too much. She often has pain on the front and outside of her shoulder and has a bit of trouble sleeping and her left hand is swollen at the end of every night. Pain Assessment Timing of Pain Assessment Timing of Pain Assessment Pre-Treatment Pain Scale Pain Scale Used Numeric (1 - 10) Self Report Pain Assessment Left Shoulder(s) Reported Pain Level
--- NOTE | 2021-12-16 08:26 | PCPTNOTE ---
Mrs. Walter attended a total of 11 treatment sessions from 08/05/21 to 09/17/21. She has failed to return to the clinic and will be discharged from our care.
== END 2021-09-17 23:59 | disposition home or self-care (01) ==
LOC: CHSPT 08:38
PROVIDERS: Visit Provider Orthopaedic Surgery
DX: M75.82 Other shoulder lesions, left shoulder (principal); S43.432D Superior glenoid labrum lesion of left shoulder, subsequent encounter
CPT/HCPCS: 97014; 97110; 97140; 97161; 97530; G0283

== ENCOUNTER 2021-09-21 23:42 | Emergency (ER) | payer BC, SELFPAY ==
--- NOTE | ~2021-09-21 | XR_ITS ---
EXAMINATION: XR shoulder LT min 2V DATE: 09/22/2021 00:57 INDICATION: Left shoulder pain. TECHNIQUE: 4 views of left shoulder were obtained. COMPARISON: Left shoulder radiograph 10/09/2019 FINDINGS: Bone alignment is normal. No fracture. Joint spaces are well maintained. IMPRESSION: 1. Normal left shoulder. Reviewed, dictated and finalized at location A. IMPRESSION: 1. Normal left shoulder.
--- NOTE | ~2021-09-21 | CT_ITS ---
EXAMINATION: CT cervical spine wo con DATE: 09/22/2021 00:57 INDICATION: Neck pain. Left shoulder pain. TECHNIQUE: Computed tomography (CT) of the cervical spine was performed without intravenous contrast. Automated exposure control and iterative reconstruction technique were employed. The dose-length pro duct was 217.13 mGy-cm. COMPARISON: CT cervical spine 05/10/2017 FINDINGS: There is mild kyphosis of cervical spine. Vertebral body heights are normal. There is moder ately decreased disc height at C4-C5, mildly decreased disc at C5-C6, and severely decreased disc hei ght at C6-C7 with endplate remodeling. The following disc levels are specifically discussed: C2-C3: There is no uncovertebral joint osteoarthritis. There is mild bilateral facet joint osteoarthr itis. There is no neural foraminal stenosis. There is no central canal stenosis. C3-C4: There is no uncovertebral joint osteoarthritis. There is mild right facet joint osteoarthritis . There is no neural foraminal stenosis. There is no central canal stenosis. C4-C5: There is moderate right and mild left uncovertebral joint osteoarthritis. There is mild right and moderate left facet joint osteoarthritis. There is mild bilateral neural foraminal stenosis. Ther e is mild central canal stenosis. C5-C6: There is no uncovertebral joint osteoarthritis. There is mild bilateral facet joint osteoarthr itis. There is no neural foraminal stenosis. There is mild central canal stenosis. C6-C7: There is severe bilateral uncovertebral joint osteoarthritis. There is severe bilateral facet joint osteoarthritis. There is mild right neural foraminal stenosis. There is mild central canal sten osis. C7-T1: There is no uncovertebral joint osteoarthritis. There is mild bilateral facet joint osteoarthr itis. There is no neural foraminal stenosis. There is no central canal stenosis. IMPRESSION: 1. No fracture. 2. Severe cervical spondylosis. Reviewed, dictated and finalized at location A.
[2021-09-22 00:20] VITALS: BP 117/86; PULSE 86; RESP 19; TEMP 37; O2SAT 97
[2021-09-22] MEDS: IBUPROFEN 400 MG TABLET 800 MG PO (00:59)
--- NOTE | 2021-09-22 01:38 | ED.UPPEXIN ---
HPI - Extremity Injury (Upper) General Chief Complaint: Extremity Injury, Upper Stated Complaint: Left [place]oulder Pain Time Seen by Provider: 09/21/21 23:45 Source: patient and RN notes reviewed Mode of arrival: ambulatory Limitations: no limitations History of Present Illness complaint: injury to: left and shoulder Onset (ago): day(s) (2) Other injuries: none Place: work Severity: mild Severity scale (1-10): 4 Relieving factors: immobilization and rest Exacerbating factors: movement of extremity Context: other (chronic pain and spasms.) Associated symptoms: numbness and neck pain Related Data Home Medications Medication Instructions Recorded Confirmed ProAir RespiClick 2 inh INHALATION PRN PRN 09/25/19 09/22/21 escitalopram oxalate 20 mg PO DAILY 09/25/19 09/22/21 Fiber OTC 1 tab-cap BYMOUTH QAM 12/01/20 09/22/21 magnesium oxide 250 mg PO DAILY 12/01/20 09/22/21 multivitamin 1 tablet PO DAILY 12/01/20 09/22/21 omeprazole 20 mg capsule,delayed 20 mg PO DAILY 12/01/20 09/22/21 release Allergies Allergy/AdvReac Type Severity Reaction Status Date / Time Penicillins Allergy Severe UNKNOWN Verified 06/22/21 11:56 BUT PT STATES VERY SERIOUS REACTION Review of Systems Review of Systems: All systems reviewed & are unremarkable except as noted in HPI and below PMFSH Past Medical History Medical History Abnormal EKG Chronic back pain COPD (chronic obstructive pulmonary disease) COPD (chronic obstructive pulmonary disease) with emphysema GERD (gastroesophageal reflux disease) History of blood clots with contraceptive medication IBS (irritable bowel syndrome) Shoulder injury Vision abnormalities Weight loss Surgical History Surgical History H/O: hysterectomy History of surgery on arm ORIF radius and ulna, Dr. Pretty, [place] Hx of tonsillectomy Family History Family History Other Arthritis Heart disease Social History Social History Smoking packs per day: 1 Smoking cigarettes per day: 20.0 Years smoked: 35 Smoking pack-years: 35.00 Tobacco type: cigarettes Alcohol intake: former Alcohol use details: QUIT 1 1/2 YRS AGO Substance use: never Gender identity (if verbalized by the patient): Female Exam Const: General: no acute distress and alert Orientation/consciousness: patient oriented x3 Limitations: no limitations HENMT: Head: normal to inspection Ears: external ears normal, TM's normal bilaterally and EAC's normal General nose exam: Normal external nose present and Normal nares present Face and sinus: normal facial exam and sinuses nontender Mouth: Yes moist mucous membranes Eyes: Conjunctivae: conjunctivae normal Pupils: Equal, round and reactive pupils present EOM: EOMs intact bilaterally Neck: Neck: normal visual inspection and no lymphadenopathy Chest: Chest palpation & inspection: normal inspection of the chest Resp: Effort & Inspection: normal respiratory effort Auscultation: clear to auscultation bilaterally Cardio: Rate: regular rate Rhythm: regular rhythm GI: GI Palp: Yes Soft to palpation and No Tenderness to palpation present (GI) Auscultation: normal bowel sounds : General: Yes bladder normal to palpation and Yes no CVA tenderness Back/Spine/Pelvis: Back: no CVA tenderness Skin: General skin exam: normal color Rashes: no rashes Neuro: General: patient oriented x3, moves all extremities, no meningeal signs, no focal motor deficits and CN's II-XI intact bilaterally Extrem: General: no pedal edema Other: minimally tender anterior right shoulder with no acute redness, swelling or deformity. no acute neck abnormalty Psych: Appearance: grossly normal and well kempt Mental Status:
[2021-09-22] MEDS: KETOROLAC 30 MG/ML VIAL (*BKC) IM (02:16)
[2021-09-22 02:44] VITALS: BP 129/76; PULSE 66; RESP 17; TEMP 36.8; O2SAT 98
== END 2021-09-22 02:46 | disposition home or self-care (01) ==
PROVIDERS: Emergency Provider Emergency Medicine; PCP Internal Medicine
DX: M75.82 Other shoulder lesions, left shoulder (principal); J44.9 Chronic obstructive pulmonary disease, unspecified; K21.9 Gastro-esophageal reflux disease without esophagitis; K58.9 Irritable bowel syndrome, unspecified; Z87.891 Personal history of nicotine dependence; Z87.828 Personal history of other (healed) physical injury and trauma; M47.812 Spondylosis without myelopathy or radiculopathy, cervical region
CPT/HCPCS: 72125; 73030; 96372; 99284; A4565; A9270; J1885

== ENCOUNTER 2021-10-16 17:33 | Emergency (ER) | payer BC, SELFPAY ==
--- NOTE | ~2021-10-16 | CT_ITS ---
EXAMINATION: CT diagnostic chest wo con DATE: 10/16/2021 18:24 INDICATION: Fall one day ago; left lateral rib pain TECHNIQUE: Computed tomography (CT) of the chest was performed without intravenous contrast. Automate d exposure control and iterative reconstruction technique were employed. Exam dose: 211.26 mGy-cm to cuate exam DLP. COMPARISON: 11/25/2020 2 view chest FINDINGS: The lungs are clear of infiltrate or consolidation. No pulmonary mass lesion. No hilar or mediastinal mass lesion or lymphadenopathy. Normal heart size. No pericardial or pleural effusion. No thoracic aortic aneurysm. There is mild thoracic and abdominal aortic calcification. Normal morphology of the adrenal glands. Included skeletal structures are unremarkable other than prominent degenerative disc disease in the l ower cervical spine C6-7. No rib fracture is detected. IMPRESSION: No significant abnormality Reviewed, dictated and finalized at [facility]. Reviewed, dictated and finalized at location [facility]. IMPRESSION: No significant abnormality
[2021-10-16 17:48] VITALS: BP 154/55; PULSE 94; RESP 16; TEMP 36.6; O2SAT 97
--- NOTE | 2021-10-16 18:10 | ED.FALL ---
HPI - Fall General Chief Complaint: Fall Stated Complaint: Lt side rib pain Time Seen by Provider: 10/16/21 17:37 Source: patient and RN notes reviewed Mode of arrival: ambulatory Limitations: no limitations History of Present Illness MD complaint: fall (hit the lateral left chest, no acute SOB) Onset (ago): day(s) (1) Fall from: chair Place fall occurred: home Loss of consciousness: none Context: tripped/slipped Location of injury: chest Severity scale (1-10): 7 Quality: dull and aching Associated symptoms (after fall): chest pain Related Data Home Medications Medication Instructions Recorded Confirmed albuterol sulfate 90 mcg/actuation 2 inh inhalation PRN PRN Shortness 09/25/19 10/16/21 breath activated powder inhaler Of Breath (ProAir RespiClick) magnesium oxide 250 mg PO DAILY 12/01/20 10/16/21 multivitamin 1 tablet PO DAILY 12/01/20 10/16/21 omeprazole 20 mg capsule,delayed 20 mg PO DAILY 12/01/20 10/16/21 release Metamucil 1 tab-cap BYMOUTH QAM 10/16/21 10/16/21 duloxetine 20 mg capsule,delayed 1 cap PO DAILY 10/16/21 10/16/21 release Allergies Allergy/AdvReac Type Severity Reaction Status Date / Time Penicillins Allergy Severe UNKNOWN Verified 10/16/21 17:52 BUT PT STATES VERY SERIOUS REACTION Review of Systems Review of Systems: All systems reviewed & are unremarkable except as noted in HPI and below Constitutional: Constitutional: Reports no additional constitutional complaints Eyes: Eyes: Reports no additional eye complaints ENT: Reports system reviewed and no additional complaints, except as documented Cardiovascular: Comments: left lateral chest wall pain Respiratory: Respiratory: Reports no additional respiratory complaints Gastrointestinal: Gastrointestinal: Reports no additional gastrointestinal complaints Genitourinary: Genitourinary: Reports no additional female genitourinary complaints Musculoskeletal: Musculoskeletal: Reports no additional musculoskeletal complaints Integumentary/Breasts: Skin/Breast: Reports system reviewed and no additional complaints, except as docu Neurologic: Reports system reviewed and no additional complaints, except as documented Psychiatric: Psychiatric: Reports no additional psychiatric complaints Endocrine: Endocrine: Reports no additional endocrine complaints Hematologic/Lymphatic: Hematologic/Lymphatic: Reports no additional hematologic/lymphatic complaints Allergic/Immunologic: Allergic/Immunologic: Reports no additional allergic/immunologic complaints PMFSH Past Medical History Medical History Abnormal EKG Chronic back pain COPD (chronic obstructive pulmonary disease) COPD (chronic obstructive pulmonary disease) with emphysema GERD (gastroesophageal reflux disease) History of blood clots with contraceptive medication IBS (irritable bowel syndrome) Left-sided chest wall pain Shoulder injury Vision abnormalities Weight loss Surgical History Surgical History H/O: hysterectomy History of surgery on arm ORIF radius and ulna, Dr. Pretty, [place] Hx of tonsillectomy Family History Family History Other Arthritis Heart disease Social History Social History Smoking packs per day: 1 Smoking cigarettes per day: 20.0 Years smoked: 35 Smoking pack-years: 35.00 Tobacco type: cigarettes Alcohol intake: former Alcohol use details: QUIT 1 1/2 YRS AGO Substance use: never Gender identity (if verbalized by the patient): Female Exam Const: General: healthy appearing and no acute distress Nutritional Appearance: well nourished Orientation/consciousness: patient oriented x3 Limitations: no limitations HENMT: Head: normal to inspection Ears: exter
[2021-10-16] MEDS: KETOROLAC (*BKC) 60 MG/2 ML VIAL IM (18:25)
[2021-10-16 19:10] VITALS: BP 114/74; PULSE 86; RESP 16; TEMP 36.4; O2SAT 98
== END 2021-10-16 19:12 | disposition home or self-care (01) ==
PROVIDERS: Emergency Provider Emergency Medicine; PCP Internal Medicine
DX: R07.89 Other chest pain (principal)
CPT/HCPCS: 71250; 96372; 99284; J1885

== ENCOUNTER 2021-11-29 20:40 | Emergency (ER) | payer BC, SELFPAY ==
--- NOTE | ~2021-11-29 | CT_ITS ---
EXAMINATION: CT brain wo con DATE: 11/29/2021 22:00 INDICATION: Weakness. Dizziness. TECHNIQUE: Computed tomography (CT) of the head was performed without intravenous contrast. The mA wa s adjusted according to patient size. Iterative reconstruction technique was employed. The dose-lengt h product was 605.33 mGy-cm. COMPARISON: Head CT 05/10/2017 FINDINGS: There is no intracranial hemorrhage, acute infarction, or abnormal intracranial mass lesion . The ventricles are normal in size. The paranasal sinuses are clear. The orbits are normal. The mast oid air cells are normal. IMPRESSION: 1. Normal brain. Reviewed, dictated and finalized at location [facility]. IMPRESSION: 1. Normal brain.
--- NOTE | ~2021-11-29 | CT_ITS ---
EXAMINATION: CT diagnostic chest wo con DATE: 11/29/2021 21:47 INDICATION: Cough. Coarse lung sounds. TECHNIQUE: Computed tomography (CT) of the chest was performed without intravenous contrast. Automate d exposure control and iterative reconstruction technique were employed. Exam dose: 192.93 mGy-cm to cuate exam DLP. COMPARISON: 10/16/2021 CT chest 11/25/2020 2 view chest FINDINGS: Normal heart size. No hilar or mediastinal mass lesion or adenopathy. No thoracic aortic an eurysm. Very small sliding hiatal hernia. No pulmonary infiltrate or consolidation or pulmonary mass lesion. Prominent degenerative disc disease at C6-7 minimal degenerative spurring of the thoracic spine. No s uspicious osteolytic or osteoblastic lesions. IMPRESSION: No significant thoracic abnormality Very small sliding hiatal hernia Reviewed, dictated and finalized at [facility]. Reviewed, dictated and finalized at location [facility].
[2021-11-29 20:45] VITALS: BP 122/73; PULSE 87; RESP 20; TEMP 36.6; O2SAT 94
--- NOTE | 2021-11-29 21:13 | ECG_ITS ---
Measurements Intervals [place] Rate: 70 P: 27 [place]: 107 QRS: 78 QRSD: 82 T: 74 QT: 373 QTc: 404 Interpretive Statements SINUS RHYTHM WITH SHORT [place] INTERVAL BASELINE ARTIFACT- I, II, III, AVR, AVL, AVF BORDERLINE ECG Electronically Signed On 11-29-2021 21:53:45 CDT by Lul Swann D.O.
[2021-11-29 21:45] LABS: Hematocrit 43.2 % (35.0-49.0); Hemoglobin 14.1 g/dL (12.0-15.0); Mean Corpuscular HGB Conc 32.6 g/dL (32.0-36.0); Mean Corpuscular Hemoglobin 28.4 pg (27.0-31.0); Mean Corpuscular Volume 86.9 fL (78.0-102.0); Mean Platelet Volume 12.2 fl (9.2-11.8); Platelet Count Result 263 K/mm3 (150-420); Red Blood Count 4.97 M/mm3 (4.20-5.40); Red Cell Distribution Width 14.9 % (11.6-14.4)
[2021-11-29 21:52] LABS: SARS-CoV-2 Ag Negative (Negative)
[2021-11-29 21:52] LABS: Influenza Control Valid (Valid)
[2021-11-29 22:05] LABS: Alanine Aminotransferase 27 U/L (14-59); Alkaline Phosphatase 157 U/L (46-116); Anion Gap 9 mmol/L (8-16); Aspartate Amino Transferase 21 U/L (15-37); Bilirubin,Total 0.1 mg/dL (0.00-1.00); Blood Urea Nitrogen 10 mg/dL (7-18); Carbon Dioxide 28 mmol/L (21-32); Chloride 105 mmol/L (98-108); Estimated CRCL calculation 50 ml/min; Estimated Glomerular Filt Rate 59; Glucose 87 mg/dL (70-99); Osmolality Calculated 292 mOsm/kg (285-295); Potassium 3.7 mmol/L (3.5-5.1); Sodium 142 mmol/L (136-145); Total Protein 7.9 g/dL (6.4-8.2); Troponin I 5.3 ng/L (0.00-60.4)
--- NOTE | 2021-11-29 22:06 | ED.GENADULT ---
HPI - General Adult General Chief complaint: Unspecified Stated complaint: headache, dizzy, diarrhea, lightheaded Time Seen by Provider: 11/29/21 20:44 Source: patient and RN notes reviewed Mode of arrival: ambulatory Limitations: no limitations History of Present Illness complaint: feeling unwell, also mild THOR[place] Onset (ago): day(s) (2) Location: head, chest and abdomen Severity: moderate Severity scale (1-10): 6 Quality: aching and dull Pain Consistency: constant Relieving factors: none Exacerbating factors: none Associated symptoms: headaches, nausea/vomiting and weakness Related Data Home Medications Medication Instructions Recorded Confirmed albuterol sulfate 90 mcg/actuation 2 inh inhalation PRN PRN Shortness 09/25/19 11/29/21 breath activated powder inhaler Of Breath (ProAir RespiClick) magnesium oxide 250 mg PO DAILY 12/01/20 11/29/21 multivitamin 1 tablet PO DAILY 12/01/20 11/29/21 omeprazole 20 mg capsule,delayed 20 mg PO DAILY 12/01/20 11/29/21 release Metamucil 1 tab-cap BYMOUTH QAM 10/16/21 11/29/21 duloxetine 20 mg capsule,delayed 1 cap PO DAILY 10/16/21 11/29/21 release Allergies Allergy/AdvReac Type Severity Reaction Status Date / Time Penicillins Allergy Severe UNKNOWN Verified 10/19/21 10:22 BUT PT STATES VERY SERIOUS REACTION Review of Systems Review of Systems: All systems reviewed & are unremarkable except as noted in HPI and below Constitutional: Constitutional: Reports no additional constitutional complaints Eyes: Eyes: Reports no additional eye complaints ENT: Reports system reviewed and no additional complaints, except as documented Cardiovascular: Cardiovascular: Reports no additional cardiovascular complaints Respiratory: Respiratory: Reports cough Gastrointestinal: Gastrointestinal: Reports abdominal pain Genitourinary: Genitourinary: Reports no additional female genitourinary complaints Musculoskeletal: Musculoskeletal: Reports myalgias Integumentary/Breasts: Skin/Breast: Reports system reviewed and no additional complaints, except as docu Neurologic: Reports system reviewed and no additional complaints, except as documented Psychiatric: Psychiatric: Reports no additional psychiatric complaints Endocrine: Endocrine: Reports no additional endocrine complaints Hematologic/Lymphatic: Hematologic/Lymphatic: Reports no additional hematologic/lymphatic complaints Allergic/Immunologic: Allergic/Immunologic: Reports no additional allergic/immunologic complaints [facility] Past Medical History Medical History Abnormal EKG Chronic back pain COPD (chronic obstructive pulmonary disease) COPD (chronic obstructive pulmonary disease) with emphysema GERD (gastroesophageal reflux disease) Headache History of blood clots with contraceptive medication IBS (irritable bowel syndrome) Left-sided chest wall pain Shoulder injury Vision abnormalities Weight loss Surgical History Surgical History H/O: hysterectomy History of surgery on arm ORIF radius and ulna, Dr. Pretty, [place] Hx of tonsillectomy Family History Family History Other Arthritis Heart disease Social History Social History Smoking packs per day: 1 Smoking cigarettes per day: 20.0 Years smoked: 35 Smoking pack-years: 35.00 Smoking status: Current every day smoker Tobacco type: cigarettes Alcohol intake: former Alcohol use details: QUIT 1 1/2 YRS AGO Substance use: never Gender identity (if verbalized by the patient): Female Exam Const: General: healthy appearing and no acute distress Nutritional Appearance: well nourished Orientation/consciousness: patient oriented x3 Limitations: no limitations HENMT: Head: no
[2021-11-29 22:15] LABS: Total Cells Counted 100
[2021-11-29 22:17] LABS: Band Neutrophils Percent 0 % (0-6); Basophils Percent Manual 0 % (0-1); Eosinophils Percent Manual 0 % (1-6); Lymphocytes Percent Manual 51 % (18-44); Monocytes Percent Manual 7 % (3-9); Neutrophils Percent Manual 42 % (46-73)
[2021-11-29 22:18] LABS: Giant Platelets Present; Large Platelets Present; Platelet Estimate Adequate (Adequate); Stomatocytes 2+ (NORMAL)
[2021-11-29] MEDS: SODIUM CHLORIDE 0.9% IV 1,000 ML 999 ML IV CONT (22:26)
[2021-11-29] MEDS: ONDANSETRON INJ 4 MG/2 ML VIAL IV PUSH (22:28)
[2021-11-29] MEDS: methylPREDNISolone SOD SUCC 125 MG VIAL IV PUSH (22:28)
[2021-11-29] MEDS: PANTOPRAZOLE SODIUM IV 40 MG VIAL IV PUSH (22:29)
[2021-11-29 22:30] VITALS: PULSE 89; RESP 19; O2SAT 95
[2021-11-29 22:30] LABS: Lactic Acid Reflex 0.3 mmol/L (0.4-2.0)
[2021-11-29] MEDS: ALBUTEROL SULFATE (*SP) INHALER 2 PUFF INHALATION (22:37)
[2021-11-29] MEDS: UMECLIDINIUM BROMIDE 62.5 MCG ELLIPTA 1 PUFF (22:38)
[2021-11-29 22:40] VITALS: PULSE 88; RESP 19; O2SAT 95
--- NOTE | 2021-11-29 22:44 | PC.NURSE ---
patient wants to leave, IV stopped--MD agreed. reviewing discharge inst
[2021-11-29 22:52] VITALS: BP 123/70; PULSE 80; RESP 18; TEMP 37.2; O2SAT 96
== END 2021-11-29 22:55 | disposition home or self-care (01) ==
PROVIDERS: Emergency Provider Emergency Medicine; PCP Internal Medicine
DX: B34.9 Viral infection, unspecified (principal); J44.9 Chronic obstructive pulmonary disease, unspecified; Z20.822 Contact with and (suspected) exposure to COVID-19
CPT/HCPCS: 36415; 70450; 71250; 80053; 83605; 84484; 85025; 87426; 87804; 93005; 94640; 96374; 96375; 99284; A9270; C9113; C9803; J2405; J2930; J7030

== ENCOUNTER 2022-07-09 09:42 | Outpatient (CLI) | payer OTHER, SELFPAY ==
--- NOTE | ~2022-07-09 | MMUS_ITS ---
EXAMINATION: MM diagnostic miguel BI w anthony, US breast BI limited HISTORY: Palpable lumps of the upper inner quadrant of the breasts TECHNIQUE: Craniocaudal, mediolateral, and mediolateral oblique 3-D tomosynthesis images of the iva ts were performed and synthetic 2-D images were generated. CAD analysis was submitted and interpreted . High resolution limited bilateral breast ultrasound was performed. COMPARISON: No prior mammogram is currently available for comparison BREAST PARENCHYMAL COMPOSITION: There are scattered areas of fibroglandular density. FINDINGS: MAMMOGRAPHIC FINDINGS: Right breast: No suspicious mass, calcification, or architectural distortion are identified to sugges t malignancy. No mammographic correlate is identified for the reported palpable abnormality of concer n. Left breast: No suspicious mass, calcification, or architectural distortion are identified to suggest malignancy. No mammographic correlate is identified for the reported palpable abnormality of concern . ULTRASOUND: Right breast: There is an 8 mm x 7 mm hypoechoic mass with irregular margins, posterior acoustic shad owing, and internal vascularity at the 2:00 location 10 cm from the nipple. Left breast: No suspicious cystic or solid mass is identified to correlate with the reported palpable abnormalities concern in the left breast. IMPRESSION: 1. Indeterminate sonographically detected right breast mass at the 2:00 location 10 cm from the nippl e. Ultrasound-guided biopsy is recommended. 2. No sonographic or mammographic correlate is identified for the reported palpable abnormality of th e left breast. Continued clinical follow-up is recommended. BI-RADS category 4, suspicious findings. Reviewed, dictated and finalized at location [facility]. [facility] [employer] IMPRESSION: 1. Indeterminate sonographically detected right breast mass at the 2:00 locatio n 10 cm from the nipple. Ultrasound-guided biopsy is recommended. 2. No sonographic or mammographic correlate is identified for the reported palp able abnormality of the left breast. Continued clinical follow-up is recommende d. BI-RADS category 4, suspicious findings.
[2022-07-09 09:57] LABS: Basophils Absolute Auto 0.04 K/mm3 (0.00-0.10); Basophils Percent Auto 0.4 % (0.0-1.0); Eosinophils Absolute Auto 0.07 K/mm3 (0.02-0.50); Eosinophils Percent Auto 0.8 % (1.0-6.0); Hematocrit 44.8 % (35.0-49.0); Hemoglobin 14.5 g/dL (12.0-15.0); Immature Granulocyte Absolute 0.03 K/mm3 (0.00-0.00); Immature Granulocyte Percent A 0.3 % (0.0-0.0); Lymphocytes Absolute Auto 3.17 K/mm3 (1.10-4.50); Lymphocytes Percent Auto 34.7 % (18.0-42.0); Mean Corpuscular HGB Conc 32.4 g/dL (32.0-36.0); Mean Corpuscular Volume 86.5 fL (78.0-102.0); Mean Platelet Volume 11.3 fl (9.2-11.8); Monocytes Absolute Auto 0.49 K/mm3 (0.10-0.90); Monocytes Percent Auto 5.4 % (2.0-11.0); Neutrophils Absolute Auto 5.3 K/mm3 (1.7-7.2); Neutrophils Percent Auto 58.4 % (50.0-70.0); Platelet Count Result 298 K/mm3 (150-420); Red Blood Count 5.18 M/mm3 (4.20-5.40); Red Cell Distribution Width 14.9 % (11.6-14.4); White Blood Count 9.1 K/mm3 (4.8-10.8)
[2022-07-09 09:58] LABS: Appearance Urine Clear (Clear); Bilirubin Urine Negative (Negative); Blood Urine Negative (Negative); Color Urine Light Yellow (Yellow); Glucose Urine UA Negative (Negative); Ketones Urine Negative (Negative); Leukocyte Esterase Ur Trace LEU/UL (Negative); Nitrate Urine Negative (Negative); Protein Urine Negative (Negative); Urobilinogen Urine 0.2 mg/dL (0.2-1.0); pH Urine 5.5 (5.0-8.0)
[2022-07-09 10:04] LABS: Add Urine Microscopic? YES; RBC Urine None seen /hpf (0-2); Squamous Epithelial Cell Urine Few /hpf (Few); WBC Urine 0-3 /hpf (0-3)
[2022-07-09 10:05] LABS: Bacteria Urine Trace /hpf
[2022-07-09 10:40] LABS: Alanine Aminotransferase 41 U/L (14-59); Alkaline Phosphatase 134 U/L (46-116); Anion Gap 10 mmol/L (8-16); Aspartate Amino Transferase 34 U/L (15-37); Bilirubin,Total 0.2 mg/dL (0.00-1.00); Blood Urea Nitrogen 12 mg/dL (7-18); Carbon Dioxide 29 mmol/L (21-32); Chloride 104 mmol/L (98-108); Cholesterol 317 mg/dL (0-200); Estimated Glomerular Filt Rate > 60; Free T4 Free Thyroxine 0.73 ng/dL (0.76-1.46); Glucose 97 mg/dL (70-99); HDL Direct 44 mg/dL (40-60); LDL Cholesterol Calculated 224 mg/dL (<130); Osmolality Calculated 295 mOsm/kg (285-295); Sodium 143 mmol/L (136-145); Thyroid Stimulating Hormone 1.16 uIU/mL (0.36-3.74); Total Protein 7.3 g/dL (6.4-8.2); Triglycerides 244 mg/dL (0-150)
== END 2022-07-09 09:43 | disposition home or self-care (01) ==
PROVIDERS: PCP Internal Medicine; Visit Provider Nurse Practitioner Family
DX: Z00.00 Encounter for general adult medical examination without abnormal findings (principal); E78.5 Hyperlipidemia, unspecified; R92.8 Other abnormal and inconclusive findings on diagnostic imaging of breast
CPT/HCPCS: 36415; 76642; 77062; 77066; 80053; 80061; 81001; 84439; 84443; 85025; G0279

== ENCOUNTER 2022-07-21 10:12 | Outpatient (CLI) | payer OTHER, SELFPAY ==
--- NOTE | ~2022-07-21 | MMUS_ITS ---
MM post biopsy invasive RT, US breast biopsy RT w image EXAMINATION: US GUIDED NEEDLE BIOPSY WITH VACUUM ASSISTANCE DATE: 07/21/2022 11:34 CDT INDICATION: Right breast mass seen on prior examination. Ultrasound-guided core biopsy is requested to evaluate for malignancy. TECHNIQUE AND FINDINGS: The risks and potential benefits of the procedure were discussed with the patient, and written inform ed consent was obtained. After sterile preparation of the breast, 1% lidocaine was utilized for loca l anesthesia. 1% lidocaine with epinephrine was used for deep anesthesia. A 10G vacuum-assisted biopsy gun needle was advanced through to the outer edge of the region of inter est from a superior lateral approach utilizing sonographic guidance. A total of three tissue core sa mples were obtained through the lesion. An Inrad tissue marker clip was then placed at the biopsy si te. Hemostasis was achieved. The patient tolerated procedure well and there was no evidence of immediate complication. The patien t was given verbal instructions partly is from the department. Right breast mammograms to document t issue marker clip placement. The tissue samples were submitted to surgical pathology for histologic a nalysis. IMPRESSION: 1. Successful ultrasound-guided vacuum-assisted biopsy of right breast mass with tissue marker place ment. Please refer to pathology report for histologic analysis. Reviewed, dictated and finalized at location [facility]. IMPRESSION: 1. Successful ultrasound-guided vacuum-assisted biopsy of right breast mass wi th tissue marker placement. Please refer to pathology report for histologic kayley lysis.
== END 2022-07-21 10:13 | disposition home or self-care (01) ==
PROVIDERS: PCP Internal Medicine; Visit Provider Nurse Practitioner Family
DX: R92.8 Other abnormal and inconclusive findings on diagnostic imaging of breast (principal); N63.10 Unspecified lump in the right breast, unspecified quadrant
CPT/HCPCS: 19083; 88305; A4648

== ENCOUNTER 2022-07-21 13:49 | Outpatient (CLI) | payer OTHER, SELFPAY ==
--- NOTE | ~2022-07-21 | DEXA_ITS ---
Bone Density Report Name: CAROLINA BURTON Age: 56 Sex: Female Ethnicity: White Date of : 1965 Indication: postmenopausal; screening for osteoporosis; height loss; hysterectomy; Referring Provider: Gabriela, Aleja Monte Study: Bone densitometry was performed. Exam Date: July 21, 2022 Accession number: [id number] Bone Density: Region BMD T-score Z-score Classification AP Spine(L1-L4) 0.955 -0.8 0.2 Normal Femoral Neck (Left) 0.681 -1.5 -0.5 Osteopenia Total Hip (Left) 0.835 -0.9 -0.2 Normal Femoral Neck (Right) 0.671 -1.6 -0.6 Osteopenia Total Hip (Right) 0.856 -0.7 0.0 Normal Femoral Neck Mean 0.676 -1.6 -0.5 Osteopenia Total Hip Mean 0.846 -0.8 -0.1 Normal World Health Organization criteria for BMD impression classify patients as: Normal (T-score at or above -1.0), Osteopenia (T-score between -1.0 and -2.5), or Osteoporosis (T-score at or below -2.5). 10-year Fracture Risk(1): Major Osteoporotic Fracture 6.6% Hip Fracture 0.9% Reported Risk Factors: [place] (), Neck BMD=0.671, BMI=29.8, smoking (1) FRAX(R) Version 3.08. Fracture probability calculated for an untreated patient. Fracture probability may be lower if the patient has received treatment. Clinical Information Provided by Patient: Smokes Has used the following medications: Vitamin D, Calcium, multivit Has the following medical conditions: Hysterectomy Patient maximum height was 64 Menopause Age: 50 No regular weight bearing exercise Does not regularly consume dairy products Drinks caffeinated beverages Onset of menses at age 16 Number of children 2 Impression: The patient has low bone mass, based on the Right Femoral Neck T-score. The patient has risk factors, including: smoking. Discussion: BONE DENSITY IS LOW AT ONE OR MORE SKELETAL SITES. This patient's lowest T-score is low at one or more skeletal sites. It meets the World Health Organization's (WHO) criteria for ?low bone mass? (T-score between -1.0 and -2.5). The patient's 10-year risk of fracture as calculated by FRAX is less than the threshold where pharmacological therapy is recommended by the National Osteoporosis Foundation (NOF). However, all treatment decisions require clinical judgment and consideration of individual patient factors, including patient preferences, comorbidities, previous drug use, risk factors not captured in the FRAX model (e.g., frailty, falls, vitamin D deficiency, increased bone turnover, interval significant decline in bone density) and possible under or overestimation of fracture risk by FRAX. The patient should follow a healthful lifestyle (good nutrition with adequate calcium and vitamin D, and appropriate weight-bearing exercise). Follow-Up: Consider repeating this study in 2 to 3 years to reass
== END 2022-07-21 13:50 | disposition home or self-care (01) ==
LOC: CHSIMG 13:52
PROVIDERS: PCP Internal Medicine; Visit Provider Nurse Practitioner Family
DX: Z78.0 Asymptomatic menopausal state (principal); M85.89 Other specified disorders of bone density and structure, multiple sites
CPT/HCPCS: 77080

== ENCOUNTER 2022-08-24 10:48 | Outpatient (CLI) | payer OTHER, SELFPAY ==
--- NOTE | ~2022-08-24 | XR_ITS ---
EXAM: XR lumbar spine 2-3V DATE: 08/24/2022 11:17 HISTORY: back pain and swelling-H/O FLUID BUILD UP-REMOVED . COMPARISON: 09/25/2019. FINDINGS: 5 nonrib-bearing lumbar-type vertebral bodies. Pedicles intact. Normal vertebral body alig nment. Vertebral body heights preserved. Minimal disc space narrowing and marginal osteophytosis at L 1-2, L4-5, and L5-S1. Minimal lower lumbar facet sclerosis. No fracture or dislocation. Atherosclerot ic calcifications without evident aneurysm. Stable calcification in the posterior soft tissues, quest ion injection granuloma or scar. IMPRESSION: Minimal lumbar spondylosis. No acute findings. Reviewed, dictated and finalized at location [facility].
[2022-08-24 11:04] LABS: Basophils Absolute Auto 0.05 K/mm3 (0.00-0.10); Basophils Percent Auto 0.5 % (0.0-1.0); Eosinophils Absolute Auto 0.07 K/mm3 (0.02-0.50); Eosinophils Percent Auto 0.7 % (1.0-6.0); Hematocrit 45.2 % (35.0-49.0); Hemoglobin 14.6 g/dL (12.0-15.0); Immature Granulocyte Absolute 0.03 K/mm3 (0.00-0.00); Immature Granulocyte Percent A 0.3 % (0.0-0.0); Lymphocytes Absolute Auto 3.57 K/mm3 (1.10-4.50); Lymphocytes Percent Auto 34.4 % (18.0-42.0); Mean Corpuscular HGB Conc 32.3 g/dL (32.0-36.0); Mean Corpuscular Hemoglobin 28.2 pg (27.0-31.0); Mean Corpuscular Volume 87.4 fL (78.0-102.0); Mean Platelet Volume 11.5 fl (9.2-11.8); Monocytes Absolute Auto 0.64 K/mm3 (0.10-0.90); Monocytes Percent Auto 6.2 % (2.0-11.0); Neutrophils Percent Auto 57.9 % (50.0-70.0); Platelet Count Result 282 K/mm3 (150-420); Red Blood Count 5.17 M/mm3 (4.20-5.40); Red Cell Distribution Width 14.3 % (11.6-14.4); White Blood Count 10.4 K/mm3 (4.8-10.8)
[2022-08-24 11:28] LABS: CRP 3.6 mg/dL (0.0-0.9); Creatine Kinase 94 U/L (26-192)
== END 2022-08-24 10:49 | disposition home or self-care (01) ==
LOC: CHSLAB 10:50
PROVIDERS: PCP Internal Medicine; Visit Provider Internal Medicine
DX: M54.9 Dorsalgia, unspecified (principal); R60.9 Edema, unspecified; Z79.02 Long term (current) use of antithrombotics/antiplatelets; M43.06 Spondylolysis, lumbar region
CPT/HCPCS: 36415; 72100; 82550; 85025; 86140

== ENCOUNTER 2022-08-28 06:51 | Outpatient (CLI) | payer OTHER, SELFPAY ==
--- NOTE | ~2022-08-28 | MR_ITS ---
MRI of the lumbar spine Clinical History: Back pain, soft tissue mass Technique: Axial T2-weighted images, and sagittal T1-weighted, T2-weighted, and T2 fat-sat images wer e acquired. Findings: There is no fracture or subluxation of the lumbar spine. Vertebral bodies maintain normal h eight and alignment. No bone marrow signal abnormality seen. At L1-L2, L2-L3, L3-L4, there is no disc bulge or herniation. There are mild facet joint degenerative changes. No spinal canal stenosis or neural foraminal narrowing at these levels. At L4-L5 and L5-S1, there are minimal disc bulges. There is mild facet arthropathy at these levels. N o spinal canal stenosis or neural foraminal narrowing at these levels. In the posterior subcutaneous soft tissues at the left lower back region, there is an irregular lesio n with hypointense T1 and T2 signal, not included in the [id number] for the axial images. Impression: Minimal degenerative spondylitic changes in the lumbar spine, as detailed above. Irregular lesion in the lower posterior paravertebral subcutaneous soft tissues with hypointense T1 a nd T2 signal, measuring approximately 2.1 cm in diameter, incompletely included in the [id number]. This is indeterminate, though hypointense T1 and T2 signal which suggests a fibrotic/fibrous lesion. Consider pre and postcontrast sacral MR to more completely evaluate this finding. Reviewed, dictated and finalized at [facility]. Impression: Minimal degenerative spondylitic changes in the lumbar spine, as detailed above . Irregular lesion in the lower posterior paravertebral subcutaneous soft tissues with hypointense T1 and T2 signal, measuring approximately 2.1 cm in diameter, incompletely included in the [id number]. This is indeterminate, though hypo intense T1 and T2 signal which suggests a fibrotic/fibrous lesion. Consider pre and postcontrast sacral MR to more completely evaluate this finding.
== END 2022-08-28 06:52 | disposition home or self-care (01) ==
LOC: CHSIMG 06:53
PROVIDERS: PCP Internal Medicine; Visit Provider Internal Medicine
DX: M54.50 Low back pain, unspecified (principal); M89.9 Disorder of bone, unspecified
CPT/HCPCS: 72148

== ENCOUNTER 2022-09-04 06:48 | Outpatient (CLI) | payer OTHER, SELFPAY ==
--- NOTE | ~2022-09-04 | MR_ITS ---
EXAMINATION: MR sacrum wo/w con DATE: 09/04/2022 08:14 INDICATION: Low back mass and pain. TECHNIQUE: Magnetic resonance imaging (MRI) of the sacrum was performed without and with 10 mL MultiH ance intravenous contrast. COMPARISON: Lumbar spine MRI 08/28/2022, CT abdomen and pelvis 11/08/2017 FINDINGS: Bone alignment is normal. No fracture. There is mild osteoarthritis of the hips. There is m ild lumbar spondylosis. Superficial to the sacrum on the left, there is chronic subcutaneous fat stra nding with dystrophic calcifications. The fat stranding is worsened from 11/08/2017. IMPRESSION: 1. Subcutaneous fat stranding and chronic dystrophic calcifications superficial to the sacrum to the left of midline, consistent with fat necrosis. Pain and worsening of findings from 11/08/2017 suggests an acute component. Reviewed, dictated and finalized at location A. IMPRESSION: 1. Subcutaneous fat stranding and chronic dystrophic calcifications superficial to the sacrum to the left of midline, consistent with fat necrosis. Pain and w orsening of findings from 11/08/2017 suggests an acute component.
== END 2022-09-04 06:49 | disposition home or self-care (01) ==
LOC: CHSIMG 06:49
PROVIDERS: PCP Internal Medicine; Visit Provider Internal Medicine
DX: R22.2 Localized swelling, mass and lump, trunk (principal)
CPT/HCPCS: 72197; A9577

== ENCOUNTER 2023-02-03 16:20 | Outpatient (CLI) | payer OTHER, SELFPAY ==
--- NOTE | ~2023-02-03 | XR_ITS ---
EXAMINATION: XR knee LT min 4V DATE: 02/03/2023 16:45 INDICATION: Left knee pain. TECHNIQUE: 4 views of left knee including upright views were obtained. COMPARISON: None. FINDINGS: Bone alignment is normal. No fracture. Joint spaces are normal. No knee joint effusion. IMPRESSION: 1. Normal left knee. Reviewed, dictated and finalized at location E. IMPRESSION: 1. Normal left knee.
== END 2023-02-03 16:21 | disposition home or self-care (01) ==
PROVIDERS: PCP Internal Medicine; Visit Provider Nurse Practitioner Family
DX: M25.562 Pain in left knee (principal)
CPT/HCPCS: 73564

== ENCOUNTER 2023-02-12 10:01 | Outpatient (CLI) | payer OTHER, SELFPAY ==
--- NOTE | ~2023-02-12 | MR_ITS ---
EXAMINATION: MR knee LT wo con DATE: 02/12/2023 10:47 INDICATION: Left knee pain TECHNIQUE: Magnetic resonance imaging (MRI) of the affected knee was performed without intravenous co ntrast. Sequences included coronal PD-weighted FSE, coronal PD-weighted FS FSE, sagittal T2-weighted FSE, sagittal PD-weighted FS FSE and axial PD weighted fat saturated FSE. COMPARISON: None. FINDINGS: Medial compartment: Medial meniscus is normal. Chondral fissuring with subtle underlying cortical irregularity and tiny f ocus of subarticular edema-like signal change at the anterior weightbearing medial femoral condyle. Lateral compartment: Lateral meniscus is normal. Articular cartilage is normal. Patellofemoral compartment: Articular cartilage is normal. Ligaments and tendons: Anterior and posterior cruciate ligaments are normal. The medial collateral ligament and fibular leora ateral ligament complex are normal. Patellar tendon is normal. Mild distal quadriceps tendinopathy. T he visualized medial and lateral hamstring tendons as well as the iliotibial band are normal. Fluid: Physiologic amount of fluid in the joint space. No loose osteochondral bodies identified. Osseous/other: Subtle tiny focus of subarticular edema-like signal change at the anterior weightbearing medial femor al condyle there is otherwise normal marrow signal. No fracture or pathologic marrow replacing proces s. IMPRESSION: 1. 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 2. Mild distal quadriceps tendinopathy. Reviewed, dictated and finalized at location A. IMPRESSION: 1. Mild osteoarthritis in the medial compartment with moderate to high-grade ch ondromalacia along the anterior weightbearing medial femoral condyle. 2. Mild distal quadriceps tendinopathy.
== END 2023-02-12 10:02 | disposition home or self-care (01) ==
LOC: CHSIMG 10:02
PROVIDERS: PCP Internal Medicine; Visit Provider Nurse Practitioner Family
DX: M25.562 Pain in left knee (principal); M17.12 Unilateral primary osteoarthritis, left knee; M94.262 Chondromalacia, left knee; M76.892 Other specified enthesopathies of left lower limb, excluding foot
CPT/HCPCS: 73721

== ENCOUNTER 2023-06-15 15:58 | Emergency (ER) | payer OTHER, SELFPAY ==
[2023-06-15 15:58] VITALS: BP 145/67; PULSE 94; RESP 20; TEMP 36.7; O2SAT 97
--- NOTE | 2023-06-15 16:06 | ED.ALLEREA ---
HPI - Allergic Reaction General Chief complaint: Allergic Reaction Stated complaint: ALLERGIC REACTION Time Seen by Provider: 06/15/23 16:06 Source: patient Mode of arrival: ambulatory Limitations: no limitations History of Present Illness HPI narrative: 57-year-old female with a history of smoking, IBS GERD, COPD, chronic low back pain was seen by her primary care physician and received a shot of Toradol and steroid. She was prescribed tramadol and oral steroids. He presents to the ER with -- facial flushing/ facial redness -- itching of her head no other cutaneous lesions noted. No throat swelling/tongue swelling. No difficulty breathing. No abdominal pain. No lightheadedness. Patient is hemodynamically stable and saturating 97% on room air. MD complaint: allergic reaction Onset (ago): day(s) ( One day) Exposure: medication Known history of allergy to: history of penicillin allergy Symptoms: itching Treatment prior to arrival: none Previous Allergic Reaction History: anaphylaxis Related Data Home Medications Medication Instructions Recorded Confirmed multivitamin 1 tablet PO DAILY 12/01/20 06/15/23 famotidine 40 mg tablet 40 mg PO BID 05/24/23 06/15/23 rosuvastatin 10 mg tablet 10 mg PO DAILY 05/24/23 06/15/23 prednisone 20 mg tablet 40 mg PO TID 06/15/23 06/15/23 tramadol 50 mg tablet 50 mg PO BID PRN Pain 06/15/23 06/15/23 Allergies Allergy/AdvReac Type Severity Reaction Status Date / Time Penicillins Allergy Severe UNKNOWN Verified 06/15/23 16:05 BUT PT STATES VERY SERIOUS REACTION Review of Systems Review of Systems: All systems reviewed & are unremarkable except as noted in HPI and below Constitutional: Constitutional: Reports as per HPI and Reports no additional constitutional complaints Eyes: Eyes: Reports as per HPI and Reports no additional eye complaints ENT: Reports system reviewed and no additional complaints, except as documented and Reports as per HPI Cardiovascular: Cardiovascular: Reports as per HPI and Reports no additional cardiovascular complaints Respiratory: Respiratory: Reports as per HPI and Reports no additional respiratory complaints Comments: chronic shortness of breath Gastrointestinal: Gastrointestinal: Reports as per HPI and Reports no additional gastrointestinal complaints Genitourinary: Genitourinary: Reports no additional female genitourinary complaints and Reports as per HPI Musculoskeletal: Musculoskeletal: Reports no additional musculoskeletal complaints, Reports as per HPI and Reports back pain Integumentary/Breasts: Comments: facial erythema according to the patient Neurologic: Reports system reviewed and no additional complaints, except as documented and Reports as per HPI Psychiatric: Psychiatric: Reports no additional psychiatric complaints and Reports as per HPI Endocrine: Endocrine: Reports no additional endocrine complaints and Reports as per HPI Hematologic/Lymphatic: Hematologic/Lymphatic: Reports no additional hematologic/lymphatic complaints and Reports as per HPI Allergic/Immunologic: Allergic/Immunologic: Reports no additional allergic/immunologic complaints PMFSH Past Medical History Medical History Abnormal EKG Chronic back pain COPD (chronic obstructive pulmonary disease) COPD (chronic obstructive pulmonary disease) with emphysema GERD (gastroesophageal reflux disease) Headache History of blood clots with contraceptive medication IBS (irritable bowel syndrome) Left-sided chest wall pain Shoulder injury Vision abnormalities Weight loss Surgical History Surgical History H/O: hysterectomy History of surgery on arm ORIF radius and ulna, Dr. [place], [place] Hx of tonsillectomy Family History Family History Other Ar
[2023-06-15 16:09] VITALS: BP 145/67; PULSE 94; RESP 20; TEMP 36.7; O2SAT 97
== END 2023-06-15 16:26 | disposition home or self-care (01) ==
LOC: CHSED 16:23
PROVIDERS: Emergency Provider Internal Medicine Critical Care Medicine; PCP Internal Medicine
DX: L29.8 Other pruritus (principal); T39.8X5A Adverse effect of other nonopioid analgesics and antipyretics, not elsewhere classified, initial encounter; T38.0X5A Adverse effect of glucocorticoids and synthetic analogues, initial encounter; J44.9 Chronic obstructive pulmonary disease, unspecified; Z79.899 Other long term (current) drug therapy; F17.210 Nicotine dependence, cigarettes, uncomplicated
CPT/HCPCS: 99281

== ENCOUNTER 2023-06-21 00:38 | Day surgery (SDC) | payer OTHER, SELFPAY ==
[2023-05-24 13:24] VITALS: BMI 32.8
--- NOTE | 2023-06-17 11:25 | SUR.PREOP ---
Patient called regarding upcoming procedure. Unable to leave message.
--- NOTE | 2023-06-20 16:04 | PM.HPGS ---
History of Present Illness History of Present Illness Consent: Risks, benefits, and alternatives have been discussed and questions answered. Patient agrees to proceed with procedure. Chief complaint: hx of colon polyps Narrative: Monalisa Walter is a 57 year old female Referred for colon cancer screening. Five years ago she had multiple adenomas removed from the ascending colon. Review of Systems Review of Systems: All systems reviewed & are unremarkable except as noted in HPI and below PMFSH Past Medical History Medical History Abnormal EKG Chronic back pain COPD (chronic obstructive pulmonary disease) COPD (chronic obstructive pulmonary disease) with emphysema GERD (gastroesophageal reflux disease) Headache History of blood clots with contraceptive medication IBS (irritable bowel syndrome) Left-sided chest wall pain Shoulder injury Vision abnormalities Weight loss Surgical History Surgical History H/O: hysterectomy History of surgery on arm ORIF radius and ulna, Dr. Pretty, [place] Hx of tonsillectomy Family History Family History Other Arthritis Heart disease Social History Social History Smoking packs per day: 1 Smoking cigarettes per day: 20.0 Years smoked: 30 Smoking pack-years: 30.00 Smoking status: Current every day smoker Tobacco type: cigarettes Alcohol intake: former Alcohol use details: QUIT 1 1/2 YRS AGO Substance use: never Living arrangements: with family Occupation/Education: occupation Gender identity (if verbalized by the patient): Female Meds Home Medications and Allergies Home Medications Medication Instructions Recorded Confirmed Type multivitamin 1 tablet PO DAILY 12/01/20 06/15/23 History albuterol sulfate 90 mcg/actuation 2 puff inhalation QID #8.5 grams 11/29/21 06/15/23 Rx aerosol inhaler famotidine 40 mg tablet 40 mg PO BID 05/24/23 06/21/23 History rosuvastatin 10 mg tablet 10 mg PO DAILY 05/24/23 06/15/23 History prednisone 20 mg tablet 40 mg PO TID 06/15/23 06/15/23 History tramadol 50 mg tablet 50 mg PO BID PRN Pain 06/15/23 06/15/23 History Allergies Allergy/AdvReac Type Severity Reaction Status Date / Time Penicillins Allergy Severe UNKNOWN Verified 06/15/23 16:05 BUT PT STATES VERY SERIOUS REACTION Exam Resp: Auscultation: clear to auscultation bilaterally Cardio: Rate: regular rate Rhythm: regular rhythm GI: GI Palp: Yes Soft to palpation and No Tenderness to palpation present (GI) Assessment and Plan Assessment and plan (1) Colon cancer screening: Code(s): Z12.11 - Encounter for screening for malignant neoplasm of colon Status: Acute Assessment and Plan: Colonoscopy with possible biopsy or polypectomy or cautery or injection of substances.
[2023-06-21 06:57] VITALS: BP 126/66; PULSE 89; RESP 18; TEMP 36.8; O2SAT 99
[2023-06-21] MEDS: LACTATED RINGERS 1,000 ML 150 ML IV CONT (07:08)
--- NOTE | 2023-06-21 07:57 | WPDANESEPPF ---
Anes - Initial Pre Proc Eval Procedure: Operation Date: 06/21/23 08:00 Proposed Procedures p Colonoscopy - Pj Lange MD Date/Time: 06/21/23 07:57 Surgeon: Pj Lange MD Pre Op Diagnosis: hx of colon polyps Patient Data Age: 57 Gender: F Height: 1.6 m Weight: 74.8 kg Last Vital Signs Temp 98.3 F 06/21/23 06:57 Pulse 89 06/21/23 06:57 Resp 18 06/21/23 06:57 BP 126/66 06/21/23 06:57 Pulse Ox 99 06/21/23 06:57 O2 Del Method Room Air 06/21/23 06:57 Allergies Allergy/AdvReac Type Severity Reaction Status Date / Time Penicillins Allergy Severe UNKNOWN Verified 06/15/23 16:05 BUT PT STATES VERY SERIOUS REACTION Home Medications Medication Instructions Recorded Confirmed Type multivitamin 1 tablet PO DAILY 12/01/20 06/15/23 History albuterol sulfate 90 mcg/actuation 2 puff inhalation QID #8.5 grams 11/29/21 06/15/23 Rx aerosol inhaler famotidine 40 mg tablet 40 mg PO BID 05/24/23 06/21/23 History rosuvastatin 10 mg tablet 10 mg PO DAILY 05/24/23 06/15/23 History prednisone 20 mg tablet 40 mg PO TID 06/15/23 06/15/23 History tramadol 50 mg tablet 50 mg PO BID PRN Pain 06/15/23 06/15/23 History Patient hx anesthesia problems: none Family hx anesthesia problems: none Results Review: All pre-operative results and documents have been reviewed as part of the pre-operative evaluation. [facility] Past Medical History Medical History Abnormal EKG Chronic back pain COPD (chronic obstructive pulmonary disease) COPD (chronic obstructive pulmonary disease) with emphysema GERD (gastroesophageal reflux disease) Headache History of blood clots with contraceptive medication IBS (irritable bowel syndrome) Left-sided chest wall pain Shoulder injury Vision abnormalities Weight loss Surgical History Surgical History H/O: hysterectomy History of surgery on arm ORIF radius and ulna, Dr. [place], [place] Hx of tonsillectomy Family History Family History Other Arthritis Heart disease Social History Social History Smoking packs per day: 1 Smoking cigarettes per day: 20.0 Years smoked: 30 Smoking pack-years: 30.00 Smoking status: Current every day smoker Tobacco type: cigarettes Alcohol intake: former Alcohol use details: QUIT 1 1/2 YRS AGO Substance use: never Living arrangements: with family Occupation/Education: occupation Gender identity (if verbalized by the patient): Female Anes - Eval Final PreProcedure Day of Procedure 06/21/23 07:57 Patient weight: obese Heart: regular rate and rhythm Lungs: clear to auscultation Airway: Mallampati scale class II Neurological: alert and oriented Last oral intake: >/= 8 hours ASA classification: III Emergent: no Anesthetic plan: proceed Anesthesia type and monitoring: general GIVS and standard monitoring Results Review: All pre-operative results and documents have been reviewed as part of the pre-operative evaluation. Informed Consent: The patient's anesthetic plan and its attendant risks and benefits were discussed with the patient/family/POA. Questions were solicited and answers provided to the satisfaction of the patient/family/POA.
[2023-06-21 08:20] VITALS: BP 119/60; PULSE 77; RESP 18; O2SAT 99
[2023-06-21 08:28] VITALS: BP 119/57; PULSE 75; RESP 20; O2SAT 99
[2023-06-21 08:38] VITALS: BP 116/60; PULSE 77; RESP 20; O2SAT 99
== END 2023-06-21 08:47 | disposition home or self-care (01) ==
PROVIDERS: PCP Internal Medicine; Visit Provider Internal Medicine Gastroenterology
PROC: 0DJD8ZZ Inspection of Lower Intestinal Tract, Via Natural or Artificial Opening Endoscopic (ICD-10-PCS; CPT 45378; principal; 2023-06-21 08:00)
DX: Z12.11 Encounter for screening for malignant neoplasm of colon (principal); D12.2 Benign neoplasm of ascending colon; D12.8 Benign neoplasm of rectum; K57.30 Diverticulosis of large intestine without perforation or abscess without bleeding; K21.9 Gastro-esophageal reflux disease without esophagitis; F17.210 Nicotine dependence, cigarettes, uncomplicated
CPT/HCPCS: 45380; 45385; 45381; 88305; J2704; J7120

== ENCOUNTER 2023-11-10 06:22 | Emergency (ER) | payer OTHER, SELFPAY ==
[2023-11-10 06:24] VITALS: BP 130/83; PULSE 96; RESP 18; TEMP 36.3; O2SAT 100
--- NOTE | 2023-11-10 06:40 | ED.BACK ---
HPI - Back Pain/Injury General Chief Complaint: Back Pain/Injury Stated Complaint: back pain Time Seen by Provider: 11/10/23 06:27 Source: patient Mode of arrival: ambulatory Limitations: no limitations History of Present Illness HPI Narrative: 57-year-old female with a history of smoking, COPD, IBS, GERD, chronic low back pain( MRI of lumbar spine and sacrum in 08/2022 revealed mild spondylitic changes, fat necrosis over the sacrum with mild facet hypertrophy and without any canal/foraminal stenosis) presents to the ER with a 3 day history of -- worsening of her chronic low back pain . No trauma. No radiation of the pain. No motor or sensory loss of the lower extremities. No bladder or bowel involvement. MD elicited complaint: back pain Pertinent past history: prior back pain Onset (ago): day(s) ( Three days) Timing: constant Severity: moderate Similar Symptoms Previously: Yes Quality: aching Location: lumbar spine Radiation: none Exacerbating factors: movement Relieving factors: immobilization Associated symptoms: denies other symptoms Work related injury: No Related Data Home Medications Medication Instructions Recorded Confirmed multivitamin 1 tablet PO DAILY 12/01/20 11/10/23 famotidine 40 mg tablet 40 mg PO BID 05/24/23 11/10/23 rosuvastatin 10 mg tablet 10 mg PO DAILY 05/24/23 11/10/23 Allergies Allergy/AdvReac Type Severity Reaction Status Date / Time Penicillins Allergy Severe Anaphylaxis Verified 11/10/23 06:32 Review of Systems Review of Systems: All systems reviewed & are unremarkable except as noted in HPI and below Constitutional: Constitutional: Reports as per HPI and Reports no additional constitutional complaints Comments: afebrile Eyes: Eyes: Reports as per HPI and Reports no additional eye complaints ENT: Reports system reviewed and no additional complaints, except as documented and Reports as per HPI Cardiovascular: Cardiovascular: Reports as per HPI and Reports no additional cardiovascular complaints Respiratory: Respiratory: Reports as per HPI and Reports no additional respiratory complaints Gastrointestinal: Gastrointestinal: Reports as per HPI and Reports no additional gastrointestinal complaints Genitourinary: Genitourinary: Reports no additional female genitourinary complaints and Reports as per HPI Musculoskeletal: Musculoskeletal: Reports as per HPI and Reports back pain Comments: chronic low back pain with recent exacerbation Integumentary/Breasts: Skin/Breast: Reports system reviewed and no additional complaints, except as docu and Reports as per HPI Neurologic: Reports system reviewed and no additional complaints, except as documented and Reports as per HPI Psychiatric: Psychiatric: Reports no additional psychiatric complaints and Reports as per HPI Endocrine: Endocrine: Reports no additional endocrine complaints and Reports as per HPI Hematologic/Lymphatic: Hematologic/Lymphatic: Reports no additional hematologic/lymphatic complaints and Reports as per HPI Allergic/Immunologic: Allergic/Immunologic: Reports no additional allergic/immunologic complaints and Reports as per HPI [facility] Past Medical History Medical History Abnormal EKG Chronic back pain COPD (chronic obstructive pulmonary disease) COPD (chronic obstructive pulmonary disease) with emphysema GERD (gastroesophageal reflux disease) Headache History of blood clots with contraceptive medication IBS (irritable bowel syndrome) Left-sided chest wall pain Shoulder injury Vision abnormalities Weight loss Surgical History Surgical History H/O: hysterectomy History of surgery on arm ORIF radius and ulna, Dr. [place], [place] Hx of tonsillectomy Family History Family History Other Arthritis Heart disease Soci
[2023-11-10] MEDS: methylPREDNISolone SOD SUCC 125 MG VIAL 40 MG IM (06:54)
[2023-11-10] MEDS: KETOROLAC 30 MG/ML VIAL (*BKC) IM (06:55)
[2023-11-10 07:17] VITALS: BP 128/80; PULSE 85; RESP 17; TEMP 36.3; O2SAT 100
== END 2023-11-10 07:17 | disposition home or self-care (01) ==
PROVIDERS: Emergency Provider Internal Medicine Critical Care Medicine; PCP Internal Medicine
DX: M54.50 Low back pain, unspecified (principal); G89.29 Other chronic pain; F17.210 Nicotine dependence, cigarettes, uncomplicated
CPT/HCPCS: 96372; 99284; J1885; J2919